=== PATIENT | male | born 1945 | race Caucasian/White ===

== ENCOUNTER 2017-05-04 05:59 | Inpatient (IN) | payer MEDICARE, BC ==
[~2017-05-04] VITALS: Ht 188 cm; Wt 102.1 kg
[~2017-05-04 05:59] MED LIST: LEVO500T10 PO
--- NOTE | 2017-05-04 07:20 | ERA ---
ER Documentation Chief Complaint Date/Time DATE: 05/04/17 TIME: 07:09 Chief Complaint Pain on the right thigh, MD had been called last night to go to ER. HPI This is a 72-year-old male with a past medical history of hypertension, hyperlipidemia, known A. fib for which he is on Xarelto and digoxin, a stroke this year for which she is now on Plavix, previous right sided total hip arthroplasty, recent angiogram of his carotids where they went through his right groin who is presenting with concerns of an infection in his right leg. Since the angiogram, the patient has complained of right groin and upper leg pain. He has been evaluated previously by his primary care physician who has been monitoring it. However, the pain has been getting progressively worse, so a CAT scan was performed yesterday of the pelvis and lower extremities that revealed a reported 10 cm x 4 cm infection in the soft tissue of the posterior upper right leg. The patient was called last night and told to come to the emergency department immediately. They decided to come this morning. The patient does not currently have any right groin pain, but he does describe a nodularity to the right groin. His pain is primarily in the right hamstring area. The patient has had intermittent fever, but he does not feel febrile now. He has not had chills. He denies chest pain or shortness of breath. He denies abdominal pain. He denies any changes to bowel movements or urination. ROS All systems reviewed and are negative except as per history of present illness. Medications Home Meds Reported Medications Atorvastatin Calcium* (Atorvastatin Calcium*) 20 Mg Tablet, 20 MG PO QHS, #30 TAB 05/04/17 Metoprolol Succinate* (Toprol XL*) 25 Mg Tab.sr.24h, 12.5 MG PO DAILY, #30 TAB 05/04/17 Rivaroxaban* (Xarelto*) 20 Mg Tablet, 20 MG PO QAM, TAB 05/04/17 Clopidogrel Bisulfate (Clopidogrel) 75 Mg Tablet, 75 MG PO DAILY, #30 TAB 05/04/17 Digoxin* (Digitek*) 125 Mcg Tablet, 0.62 MG PO QHS, TAB 05/04/17 Discontinued Reported Medications Levofloxacin* (Levofloxacin*) 500 Mg Tablet, 500 MG PO DAILY for 7 Days, TAB 08/13/15 Allergies Allergies: Coded Allergies: hydrocodone (Verified Allergy, Unknown, 05/04/17) PMhx/Soc History of Surgery: Yes (Per , 2 Right THR, L THR, L TKR, R rotator cuff repair) Anesthesia Reaction: Yes (severe vomiting ) Hx Neurological Disorder: No Hx Respiratory Disorders: No Hx Cardiac Disorders: Yes (HX ANGIOPLASTY WITH STENT) Hx Psychiatric Problems: No Hx Miscellaneous Medical Probl: No (none per pt and ) Hx Alcohol Use: Yes (OCC) Hx Substance Use: No Hx Tobacco Use: No Smoking Status: Former smoker FmHx Family History: No diabetes Physical Exam Vitals Vital Signs Date Time Temp Pulse Resp B/P Pulse Ox O2 Delivery O2 Flow Rate FiO2 05/04/17 11:23 79 18 142/73 05/04/17 06:56 Nasal Cannula 05/04/17 06:08 98.8 64 22 146/74 98 Physical Exam Const: NAD, Well Developed, Well Nourished Head: Atraumatic Eyes: Normal Conjunctiva ENT: Normal External Ears, Nose and Mouth. Neck: Full range of motion..~ No meningismus. Resp: Clear to auscultation bilaterally Cardio: Irregularly irregular rate, mild tachycardia, no murmurs Abd: Soft, non tender, non distended. Normal bowel sounds Skin: No petechiae or rashes Back: No midline or flank tenderness Ext: No cyanosis, or edema, Large area of fluctuance and induration within right hamstring area Neur: Awake and alert, normal strength, normal sensation Psych: Normal Mood and Affect Result Diagram: 05/04/17 0650 05/04/17 0650 Results 24 hrs Laboratory Tests Test 05/04/17 06:50 White Blood Count 10.810^3/ul Red Blood Count 4.7410^6/ul Hemoglobin 13.8g/dl Hematocrit 44.0% Mean Corpuscular Volume 92.8fl Mean Corpuscular Hemoglobin 29.1pg Mean Corpuscular Hemoglobin Concent 31.4g/dl Red Cell Distribution Width 13.7% Platelet Count 39864^3/UL Mean Platelet Volume 8.8fl Neutrophils % 69.3% Lymphocytes % 14.8% Monocytes % 13.8% Eosinophils % 0.9% Basophils % 0.6% Nucleated Red Blood Cells % 0.0/100WBC Neutrophils # (Manual) 7.510^3/ul Lymphocytes # 1.610^3/ul Monocytes # 1.510^3/ul Eosinophils # 0.110^3/ul Basophils # 0.110^3/ul Nucleated Red Blood Cells # 0.010^3/ul Sodium Level 140mmol/L Potassium Level 4.0mmol/L Chloride Level 103mmol/L Carbon Dioxide Level 28mmol/L Anion Gap 13 Blood Urea Nitrogen 18mg/dl Creatinine 0.99mg/dl Glucose Level 121mg/dl Calcium Level 9.8mg/dl Troponin I 0.020ng/ml Thyroid Stimulating Hormone (TSH) 1.430MIU/L Free Thyroxine 1.10ng/dl Current Medications Medications (Trade) Dose Ordered Sig/Johnathan Route PRN Reason Start Time Stop Time Status Last Admin Dose Admin Sodium Chloride (NS) 1,000 ml @ 80 mls/hr [id number] IV 05/04/17 13:30 05/05/17 01:59 Ondansetron HCl (Zofran Inj) 4 mg ER BRIDGE PRN IV NAUSEA AND/OR VOMITING 05/04/17 13:30 05/05/17 13:29 Acetaminophen (Tylenol Tab) 650 mg ER BRIDGE PRN PO MILD PAIN/FEVER 05/04/17 13:30 05/05/17 13:29 Procedures/MDM The patient's presenting with concerns of a soft tissue fluid collection in his right leg. He had a CAT scan of the pelvis and right lower extremity reportedly done yesterday that demonstrated a multilocular rim enhancing collection surrounding the right total hip arthroplasty. In the setting of recent trauma and anticoagulation, this may be suspicious for an infected hematoma and/or abscess. The CT reports will be uploaded into our system. The patient does not have any external signs of infection. The patient did fall approximately 1 month ago and did sustain a injury to the right hip. I do have high suspicion for a hematoma, given his significant anticoagulation and relatively recent trauma. I have less clinical suspicion for an infection, but this will need to be further evaluated, perhaps with a US guided sample collection in IR. The patient's vital signs indicate an irregularly irregular rhythm with mild tachycardia demonstrating atrial fibrillation with a rapid ventricular response. His heart rate ranges anywhere from the high 90s to the 110s. I do not believe that he requires Cardizem at this time, especially in the setting of a possible bleed vs. infection. We will treat the underlying pathology. LABS Blood work was obtained and reviewed. The patient has no leukocytosis or left shift. The patient is afebrile and I do not suspect a systemic infection. That does not rule out a localized infection. He does have a very mild anemia with hemoglobin of 13.8 that does not need to be emergently treated. The patient's BMP is unremarkable. The patient's thyroid function is within normal limits. His troponin is equivocal, but i have low suspicion for a cardiac etiology. The patient is tachycardic, so there may be a component of demand ischemia. He will be given IV fluids for his heart rate. A type and screen will also be sent off. EKG Read by me: Rate/Rhythm: Irregularly irregular rhythm, tachycardia at a rate of 115 bpm Intervals: Normal QRS and QTc [place]: Normal Impression: No evidence of acute ischemia or arrhythmia IMAGING The patient's chest xray was read by the radiologist as follows: FINDINGS: No focal airspace opacification, pleural effusion or pneumothorax is seen. The cardiomediastinal silhouette is mildly enlarged. Calcifications are seen within the aortic arch. The osseous structures are unremarkable. IMPRESSION: No radiographic evidence of acute cardiopulmonary disease. Mild cardiomegaly and aortic atherosclerosis. Electronically viewed and signed by .Lian Eaton MD, MD on 05/04/2017 07 :50 MDM The patient's primary physician was called to discuss the case. He felt that it would be appropriate for admission for further evaluation of this fluid collection. The patient's family had me speak to his orthopedic physician, who was his back surgeon several years ago. He was less suspicious for an infection , but he was concerned about hematoma as well. The patient will require sampling of this collection. I do not intend to start antibiotics immediately as he is otherwise well-appearing with no external signs of infection at the site. It would be prudent to obtain a sample for more targeted antibiotic treatment prior to initiating therapy blood cultures may also be sent off. The patient was otherwise stable while in the ER. Departure Diagnosis: Primary Impression: Right leg swelling Additional Impression: Traumatic hematoma of right lower leg Qualified Code: S80.11XA - Traumatic hematoma of right lower leg, initial encounter Condition: CHARLY Gambino MD May 04, 2017 07:20
[2017-05-04 07:42] LABS: BASOPHIL # 0.1 10^3/ul (0.0-0.1); BASOPHILS % 0.6 % (0.0-2.0); EOSINOPHILS # 0.1 10^3/ul (0.0-0.5); EOSINOPHILS % 0.9 % (0.0-7.0); HEMOGLOBIN 13.8 g/dl (14.0-18.0); LYMPHOCYTES # 1.6 10^3/ul (0.8-2.9); LYMPHOCYTES % 14.8 % (15.0-51.0); MEAN CORPUSCULAR HEMOGLOBIN 29.1 pg (29.0-33.0); MEAN CORPUSCULAR HGB CONC 31.4 g/dl (32.0-37.0); MEAN CORPUSCULAR VOLUME 92.8 fl (82.0-101.0); MEAN PLATELET VOLUME 8.8 fl (7.4-10.4); MONOCYTE # 1.5 10^3/ul (0.3-0.9); MONOCYTES % 13.8 % (0.0-11.0); NEUTROPHILS % 69.3 % (39.0-77.0); PLATELET COUNT 369 10^3/UL (140-415); RED BLOOD COUNT 4.74 10^6/ul (4.70-6.10); RED CELL DISTRIBUTION WIDTH 13.7 % (11.5-14.5); WHITE BLOOD COUNT 10.8 10^3/ul (4.8-10.8)
[2017-05-04] MEDS ORDERED: DIGO125T PO (07:49)
[2017-05-04] MEDS ORDERED: RIVA20TA PO (07:50)
[2017-05-04] MEDS ORDERED: CLOP75TA27 PO (07:50)
--- NOTE | 2017-05-04 07:50 | RADRPT ---
PROCEDURE: XR Chest. CLINICAL INDICATION: Chest pain TECHNIQUE: A single AP view of the chest was obtained. COMPARISON: None. FINDINGS: No focal airspace opacification, pleural effusion or pneumothorax is seen. The cardiomediastinal si lhouette is mildly enlarged. Calcifications are seen within the aortic arch. The osseous structures are unremarkable. IMPRESSION: 1. No radiographic evidence of acute cardiopulmonary disease. 2. Mild cardiomegaly and aortic atherosclerosis. RPTAT: HH .Lian Eaton MD, Date Time Electronically viewed and signed by .Lian Eaton MD, on 05/04/2017 07:50 .G/
[2017-05-04] MEDS ORDERED: ATOR20TA38 PO (07:51)
[2017-05-04] MEDS ORDERED: METO25TA7 PO (07:51)
[2017-05-04 08:10] LABS: CALCIUM 9.8 mg/dl (8.4-10.2); CREATININE 0.99 mg/dl (0.61-1.24)
[2017-05-04 08:19] LABS: TROPONIN-I 0.02 ng/ml (0.00-0.12)
[2017-05-04 08:38] LABS: THYROID STIMULATING HORMONE 1.43 MIU/L (0.465-4.680)
[2017-05-04] MEDS ORDERED: SOD CHLORIDE 0.9% 1,000 ML IV SCH (13:30)
[2017-05-04] MEDS ORDERED: ACETAMINOPHEN 325 MG TAB PO PRN (13:30)
[2017-05-04] MEDS ORDERED: ONDANSETRON 4 MG INJ IV PRN (13:30)
[2017-05-04 15:19] VITALS: TEMP 97.9
--- NOTE | 2017-05-04 15:20 | HP ---
Date/Time of Note Date/Time of Note DATE: 05/04/17 TIME: 15:15 Assessment/Plan VTE Prophylaxis VTE Prophylaxis Intervention: other Lines/Catheters IV Catheter Type (from Nrsg): Saline Lock Assessment/Plan Assessment/Plan 1. Traumatic hematoma of thigh - Per patients ortho surgeon, he was more concerned about a hematoma rather than an infection - Patient does not clinically have any signs of infection at this time, WBC nl and afebrile - No evidence of compartment syndrome as well and pulses intact - Spoke with Radiologist who said normally hematomas are not drained and they would only drain the area if concerns for infection - Will pain control for now and reassess in the am. If need for intervention will consult surgery for assistance - Blood cultures sent - CK normal 2. Afib with RVR - Holding Xarelto for now due to hematoma - Continue on Metoprolol and since had some episodes of RVR, Cardizem PRN for HR >110 3. HTN - continue home medications and will monitor and adjust as needed 4. h/o CVA - no residual deficits. Will have some expressive aphasia but no motor weakness 5. Diet - will continue normal diet at this time 6. Code Status - Full Code 7. DVT prophylaxis - SCDs >45 minutes was spent providing care at time of admission. All patients labs and imaging study report were reviewed. All questions and concerns were answered. HPI/ROS Admit Date/Time Admit Date/Time 05/04/17, 1500 Hx of Present Illness 72 yo M with PMH Afib on Xarelto, HTN, and h/o CVA with occasional expressive aphasia experiencing a mechanical fall one month ago that resulted in pain and swelling of right posterior aspect of thigh. History was obtained from patient and at bedside. Patient states the discomfort is moderate in nature, located in posterior aspect of thigh, ongoing for the past month, and has progressively worsened and was affecting his ability to ambulate. He tried ice with minimal relief and massaged the area as well but caused more pain. Patient took Advil as well. Worse with ambulation. He usually is a very active jun and able to walk on the treadmill and ride the stationary bike for long period of time but has only been able to tolerate about 5 minutes due to pain. Patient also admits to having an angiogram performed in which they went through his right groin and has been experiencing pain in that area as well. He was being monitored by his PCP who sent him for a CT scan. The CT scan revealed a 10cm x 4cm loculated fluid collection in the soft tissue of posterior right upper thigh. He was told to come to the ED out of concern for an infection. The patient has had subjective fevers with Tmax 100 per but has been afebrile and WBC normal. He denies chest pain, shortness of breath, abdominal pain, constipation, diarrhea, nausea, vomiting, or additional falls. ROS All 13 systems were reviewed and pertinent positives as per HPI. All other negative. Constitutional: No febrile, No nausea Eyes: no complaints ENT: no complaints Respiratory: no complaints Cardiovascular: No chest pain, No palpitations Gastrointestinal: no complaints Genitourinary: no complaints Musculoskeletal: other (right posterior thigh tenderness/pain) Skin: no complaints Neurologic: no complaints, other (occasional expressive aphasia), No focal-weakness, No headache Endocrine: no complaints Lymphatic: no complaints Psychological: no complaints Immunologic: no complaints PMH/Family/Social Past Medical History atrial fibrillation, HTN, CVA 07/30/2016 Past Surgical History 2 hip surgeries, knee surgery, back surgery Family History Significant Family History: cancer Social History Alcohol Use: none Smoking Status: Former smoker Drug Use: none Exam/Review of Systems Vital Signs Vitals Vital Signs Date Time Temp Pulse Resp B/P Pulse Ox O2 Delivery O2 Flow Rate FiO2 05/04/17 11:23 79 18 142/73 05/04/17 06:56 Nasal Cannula 05/04/17 06:08 98.8 98 Exam Constitutional: alert, distress, oriented, well developed Psych: no complaints Head: atraumatic, normocephalic Eyes: EOMI, nl conjunctiva, nl sclera ENMT: mucosa pink and moist Neck: non-tender, supple Respiratory: clear to auscultation, normal air movement, No crackles/rales, No diminished breath sounds Cardiovascular: irregular rhythm, nl pulses Gastrointestinal: nl liver, spleen, non-tender, soft, No distended, No rebound or guarding Extremities: tenderness (right posterior aspect of thigh, hard area appreciated , no signs of compartment syndrome, pulses intact) Neurological: No focal weakness, No numbness Skin: nl turgor Lymph: nl lymph nodes Labs Result Diagram: 05/04/17 0650 05/04/17 0650 Medications Medications Current Medications Sodium Chloride (NS) 1,000 ml @ 80 mls/hr [id number] IV ; Start 05/04/17 at 13:30; Stop 05/05/17 at 01:59 AILEEN ZEE MD May 04, 2017 15:20
[2017-05-04] MEDS ORDERED: NACL 0.9% 3 ML SYG IV SCH ×2 (15:30)
[2017-05-04] MEDS ORDERED: KETOROLAC 15 MG INJ IM PRN (15:30)
[2017-05-04 15:57] LABS: INR 1.48; PT RATIO 1.4
[2017-05-04 16:26] VITALS: Ht 188 cm; Wt 102.1 kg
[2017-05-04] MEDS ORDERED: KETOROLAC 15 MG INJ IV PRN (17:30)
[2017-05-04] MEDS ORDERED: DILTIAZEM 25 MG INJ IV PRN (18:30)
[2017-05-04] MEDS: ATORVASTATIN 20 MG TAB PO SCH (19:21)
[2017-05-04] MEDS: METOPROLOL (XL) 25 MG TAB PO SCH (19:22)
[2017-05-04 19:39] VITALS: BP 130/69; RESP 16
[2017-05-04 20:03] VITALS: PULSE 107
--- NOTE | 2017-05-04 20:14 | RADRPT ---
PROCEDURE: Ultrasound of the soft tissues of the right thigh. CLINICAL INDICATION: Palpable lesion in the soft tissues of the right thigh. TECHNIQUE: High-resolution sonography of the soft tissues of the right thigh at the site of the pa lpable lesion was performed in the axial and sagittal planes. COMPARISON: None FINDINGS: There is a heterogeneous hypoechoic mass in the posterior right thigh measuring 8.3 x 7.2 x 2.8 cm. There is no other abnormality at the site of the palpable lesion. IMPRESSION: 1. Heterogeneous hypoechoic mass in the posterior right thigh measuring 8.3 x 7.2 x 2.8 cm. 2. Correlation with MRI should be considered. RPTAT: QQ .Rodolfo Abernathy MD, MD Date Time Electronically viewed and signed by .Rodolfo Abernathy MD, on 05/04/2017 20:14 .R/
[2017-05-04] MEDS: KETOROLAC 15 MG INJ IV SCH (20:35)
[2017-05-04] MEDS ORDERED: DIGOXIN 0.125 MG TAB PO SCH (21:00)
[2017-05-04] MEDS ORDERED: ATORVASTATIN 20 MG TAB PO SCH (21:00)
[2017-05-05] VITALS (10 sets, daily range): BP systolic 120–128; BP diastolic 70–85; PULSE 73–97; RESP 16–20
[2017-05-05] MEDS: KETOROLAC 15 MG INJ IV SCH ×3 (02:26→13:00)
[2017-05-05 07:14] LABS: BASOPHILS % 0.5 % (0.0-2.0); EOSINOPHILS # 0.1 10^3/ul (0.0-0.5); EOSINOPHILS % 1.7 % (0.0-7.0); HEMATOCRIT 39.4 % (42.0-52.0); HEMOGLOBIN 12.7 g/dl (14.0-18.0); LYMPHOCYTES # 1.4 10^3/ul (0.8-2.9); LYMPHOCYTES % 17.6 % (15.0-51.0); MEAN CORPUSCULAR HEMOGLOBIN 30.1 pg (29.0-33.0); MEAN CORPUSCULAR HGB CONC 32.2 g/dl (32.0-37.0); MEAN CORPUSCULAR VOLUME 93.4 fl (82.0-101.0); MEAN PLATELET VOLUME 8.7 fl (7.4-10.4); MONOCYTE # 1.3 10^3/ul (0.3-0.9); MONOCYTES % 15.4 % (0.0-11.0); NEUTROPHILS % 64.6 % (39.0-77.0); PLATELET COUNT 342 10^3/UL (140-415); RED BLOOD COUNT 4.22 10^6/ul (4.70-6.10); RED CELL DISTRIBUTION WIDTH 13.5 % (11.5-14.5); WHITE BLOOD COUNT 8.2 10^3/ul (4.8-10.8)
[2017-05-05 07:53] LABS: ALBUMIN 3.3 g/dl (3.3-4.9); ALBUMIN/GLOBULIN RATIO 0.97; BILIRUBIN,INDIRECT 0.6 mg/dl (0-1.1); BILIRUBIN,TOTAL 0.6 mg/dl (0.2-1.3); CALCIUM 9.2 mg/dl (8.4-10.2); CREATININE 1.02 mg/dl (0.61-1.24); MAGNESIUM 2.1 mg/dl (1.7-2.5); POTASSIUM 4.7 mmol/L (3.5-5.1); TOTAL PROTEIN 6.7 g/dl (6.1-8.1)
[2017-05-05] MEDS: ATORVASTATIN 20 MG TAB PO SCH (10:34)
[2017-05-05] MEDS: METOPROLOL (XL) 25 MG TAB PO SCH (10:34)
--- NOTE | 2017-05-05 15:27 | RADRPT ---
PROCEDURE: MRI of the right lower extremity without and with IV contrast CLINICAL INDICATION: Right lower extremity pain, mass seen on ultrasound TECHNIQUE: Multiplanar multisequence images of the right lower extremity with and without IV contr ast. 10 cc of Magnevist IV contrast was used Images were interpreted at a independent PACS workstati on. COMPARISON: Ultrasound of the right lower extremity dated May 04, 2017 FINDINGS: There is extensive susceptibility artifact from orthopedic hardware at the proximal femur. Posterior and lateral to the proximal femur there is peripheral enhancing ill-defined fluid collection, overa ll measuring approximately 4.3 x 3.5 by 9.0 cm in size. There are additional sinus tract extending i nto the vastus lateralis and intermedius muscle (axial 12). The bone itself is not well assessed due to the artifact and cannot exclude associated osteomyelitis . There is chronic cortical thickening of the distal femoral shaft is likely related to a remote fra cture. Limited evaluation of the left thigh demonstrates orthopedic hardware causing also susceptibility ar tifact at the knee and near the hip as well. IMPRESSION: 1. Complex peripherally enhancing lobulated fluid collection, possibly abscess and / or hematoma, at the posterior aspect of the right thigh measuring at least 9 x 4.3 x 3.5 cm with additional small s inus tracts that appear to be extending anteriorly towards the vastus lateralis and intermedius musc les. Continued follow-up is advised to demonstrate resolution. 2. Extensive local susceptibility artifact from orthopedic hardware at the right proximal femur limi ts evaluation for osteomyelitis or fracture. Recommend correlation with plain film and / or CT for f urther evaluation. RPTAT: UU .Maikol Atkinson MD, MD Date Time Electronically viewed and signed by .Maikol Atkinson MD, MD on 05/05/2017 15:27 .K/
--- NOTE | 2017-05-05 15:49 | PN ---
Date/Time of Note Date/Time of Note DATE: 05/05/17 TIME: 15:40 Assessment/Plan VTE Prophylaxis VTE Prophylaxis Intervention: contraindicated Lines/Catheters IV Catheter Type (from Nrs): Saline Lock Assessment/Plan Assessment/Plan 1. Mass posterior aspect of right thigh - CT scan from [facility] reviewed and mentioned infection vs lipoma vs hematoma - US area revealed mass and recommendation for MRI. MRI thigh ordered this am and awaiting results to help guide plan - If infectious fluid collection will discuss with IR for drainage, or surgery if lipoma vs mass - Patient does not clinically have any signs of infection at this time, WBC nl and afebrile - No evidence of compartment syndrome as well and pulses intact - Toradol for pain relief - Blood cultures negative to date - CK normal 2. Afib with RVR - Holding Xarelto for now due to hematoma, will restart if no procedure/ hematoma - Continue on Metoprolol and since had some episodes of RVR, Cardizem PRN for HR >110 3. HTN - continue home medications and will monitor and adjust as needed 4. h/o CVA - no residual deficits. Will have some expressive aphasia but no motor weakness Subjective 24 Hr Interval Summary Free Text/Dictation Patient getting pain relief from Toradol and helping him sleep as well. He is very concerned about staying in the hospital longer than necessary and used to being more active. Denies any new complaints and no acute overnight events. Exam/Review of Systems Vital Signs Vitals Vital Signs Date Time Temp Pulse Resp B/P Pulse Ox O2 Delivery O2 Flow Rate FiO2 05/05/17 15:13 98.6 106 20 120/78 97 05/04/17 15:19 Room Air Intake and Output 05/04/17 05/04/17 05/05/17 15:00 23:00 07:00 Intake Total 200 ml 160 ml Balance 200 ml 160 ml Exam Constitutional: alert, distress, oriented, well developed Head: atraumatic, normocephalic Eyes: EOMI, nl conjunctiva, nl sclera ENMT: mucosa pink and moist Neck: non-tender, supple Respiratory: clear to auscultation, normal air movement, no crackles/rales, No diminished breath sounds Cardiovascular: irregular rhythm, nl pulses Gastrointestinal: nl liver, spleen, non-tender, soft, no distended, No rebound or guarding Extremities: tenderness of right posterior aspect of thigh, pulses intact, no visible ecchymosis, discharge, erythema, or drainage. Neurological: No focal weakness, No numbness Results Result Diagram: 05/05/17 0630 05/05/17 0630 Results 24 hrs Laboratory Tests Test 05/05/17 06:30 White Blood Count 8.2 # Red Blood Count 4.22 L Hemoglobin 12.7 L Hematocrit 39.4 L Mean Corpuscular Volume 93.4 Mean Corpuscular Hemoglobin 30.1 Mean Corpuscular Hemoglobin Concent 32.2 Red Cell Distribution Width 13.5 Platelet Count 342 Mean Platelet Volume 8.7 Neutrophils % 64.6 Lymphocytes % 17.6 Monocytes % 15.4 H Eosinophils % 1.7 Basophils % 0.5 Nucleated Red Blood Cells % 0.0 Neutrophils # (Manual) 5.3 Lymphocytes # 1.4 Monocytes # 1.3 H Eosinophils # 0.1 Basophils # 0.0 Nucleated Red Blood Cells # 0.0 Sodium Level 139 Potassium Level 4.7 Chloride Level 105 Carbon Dioxide Level 28 Anion Gap 11 Blood Urea Nitrogen 25 H Creatinine 1.02 Glucose Level 109 Calcium Level 9.2 Magnesium Level 2.1 Total Bilirubin 0.6 Direct Bilirubin 0.00 Indirect Bilirubin 0.6 Aspartate Amino Transf (AST/SGOT) 23 Alanine Aminotransferase (ALT/SGPT) 36 Alkaline Phosphatase 85 Total Protein 6.7 Albumin 3.3 Globulin 3.40 H Albumin/Globulin Ratio 0.97 Medications Medications Current Medications Digoxin (Digoxin) 0.0625 mg QHS PO Last administered on 05/04/17 20:32; Admin Dose 0.0625 MG; Start 05/04/17 at 21:00 Metoprolol Succinate (Toprol Xl) 12.5 mg DAILY PO Last administered on 10:34; Admin Dose 12.5 MG; Start 05/04/17 at 15:30 Diltiazem HCl (Cardizem Iv) 5 mg Q4H PRN IV HR >110; Start 05/04/17 at 18:30 Atorvastatin Calcium (Lipitor) 20 mg DAILY PO Last administered on 05/05/17 10: 34; Admin Dose 20 MG; Start 05/04/17 at 18:30 Ketorolac Tromethamine (Toradol) 15 mg Q6H IV Last administered on 05/05/17 02: 26; Admin Dose 15 MG; Start 05/04/17 at 19:00; Stop 05/07/17 at 18:59 AILEEN ZEE MD May 05, 2017 15:49
[2017-05-05] MEDS ORDERED: KETOROLAC 15 MG INJ IV PRN (19:00)
--- NOTE | 2017-05-05 19:05 | CONS ---
DATE OF ADMISSION: 05/04/2017 DATE OF CONSULTATION: 05/05/2017 HISTORY OF PRESENT ILLNESS: The patient is a 72-year-old male, who was admitted on April when he was sent into the emergency room by the primary care physician because of the report of the CT scan, which was obtained at [facility]. He obviously has a back sustaining blunt blow to the posterior aspect of the left thigh about a month ago. Ever since then there has been chronic pain along with some swelling and ecchymosis. He felt that there was a mild fever, however, he denies any actual chills or febrile sensations. Because of the pain over the area, his ambulation and mobility is somewhat compromised. PHYSICAL EXAMINATION: My examination revealed a 72-year-old male with tenderness over the posterior aspect of the right thigh. Deep palpation revealed that there might be a collection of fluid with ill-defined margin and there might be some interruption of the hamstring muscles, which is obvious during the selection of the right knee against resistance. Range of motion of the right hip and right knee was minimally compromised. CT scan reports a presence of multilocular collection around the right total hip arthroplasty prosthesis, which is suspicious for an infected hematoma or abscess. MRI scan in the [facility] reports the presence of lobulated fluid collection, possibly abscess or hematoma over the posterior aspect of the right thigh. He has been afebrile since his admission and he is not showing any leukocytosis. DIAGNOSTIC IMPRESSION: Hematoma with possible injury of the hamstring muscles. No evidence of infection or abscess formation. PLAN: 1. WBC scan to rule out possible presence of pyogenic process. 2. Continue observation if the WBC scan is negative. 3. If WBC scan is positive, then the possible trial of aspiration or surgical intervention have to be considered. Dictated By: In Chuyita Barahona MD /mario/trinidad /Document#: [id number]
[2017-05-05] MEDS ORDERED: NAPR500T8 PO (19:15)
--- NOTE | 2017-05-05 19:21 | PDOCDIS ---
Discharge Instructions DIAGNOSIS Discharge Diagnosis Right thigh pain with fluid collection CONDITION Patient Condition: Good HOME CARE INSTRUCTIONS: Diet Instructions: Regular ACTIVITY: Activity Restrictions: Slowly Increase Activity Rest between Activity Avoid heavy lifting FOLLOW UP/APPOINTMENTS Follow-up Plan Take Naproxen 500mg BID for pain Place heating pad on area 15-20 mins on, 1hr off Try Epsom salt baths to help relax muscles Follow up with PCP to monitor your right thigh If pain worsens or experiencing fevers, chills, nausea, or vomiting, please return to ED. You are able to resume all your medications upon discharge AILEEN ZEE MD May 05, 2017 19:21
--- NOTE | 2017-05-06 08:24 | DS ---
Date/Time of Note Date/Time of Note DATE: 05/06/17 TIME: 08:17 Discharge Summary Admission/Discharge Info Admit Date/Time May 04, 2017 at 13:33 Discharge Date/Time May 05, 2017 at 20:05 Discharge Diagnosis Right thigh pain with fluid collection Patient Condition: Good Consults Dr. Barahona, Orthopedic Surgery Hx of Present Illness 72 yo M with PMH Afib on Xarelto, HTN, and h/o CVA with occasional expressive aphasia experiencing a mechanical fall one month ago that resulted in pain and swelling of right posterior aspect of thigh. History was obtained from patient and at bedside. Patient states the discomfort is moderate in nature, located in posterior aspect of thigh, ongoing for the past month, and has progressively worsened and was affecting his ability to ambulate. He tried ice with minimal relief and massaged the area as well but caused more pain. Patient took Advil as well. Worse with ambulation. He usually is a very active jun and able to walk on the treadmill and ride the stationary bike for long period of time but has only been able to tolerate about 5 minutes due to pain. Patient also admits to having an angiogram performed in which they went through his right groin and has been experiencing pain in that area as well. He was being monitored by his PCP who sent him for a CT scan. The CT scan revealed a 10cm x 4cm loculated fluid collection in the soft tissue of posterior right upper thigh. He was told to come to the ED out of concern for an infection. The patient has had subjective fevers with Tmax 100 per but has been afebrile and WBC normal. He denies chest pain, shortness of breath, abdominal pain, constipation, diarrhea, nausea, vomiting, or additional falls. Hospital Course Patient was admitted and started on Toradol for pain control. Radiology was consulted and said they do not drain hematomas. The CT scan mentioned hematoma vs infection vs lipoma but patient was afebrile with normal WBC. There was no erythema, ecchymosis, drainage, or discharge from right thigh. US was performed which showed a 1. Heterogeneous hypoechoic mass in the posterior right thigh measuring 8.3 x 7.2 x 2.8 cm. 2. Correlation with MRI should be considered. MRI was performed and showed 1. Complex peripherally enhancing lobulated fluid collection, possibly abscess and / or hematoma, at the posterior aspect of the right thigh measuring at least 9 x 4.3 x 3.5 cm with additional small sinus tracts that appear to be extending anteriorly towards the vastus lateralis and intermedius muscles. Continued follow-up is advised to demonstrate resolution. 2. Extensive local susceptibility artifact from orthopedic hardware at the right proximal femur limits evaluation for osteomyelitis or fracture. Recommend correlation with plain film and / or CT for further evaluation. Dr. Barahona, Orthopedics, was consulted by ED physician and after discussion believed it was a hematoma as well but offered patient WBC scan to r/o infectious etiology. He believed the patients pain stemmed more from torn muscle that occurred during his fall. Patient states the Toradol was improving his pain and ESR, CRP was slightly elevated as well which was more suspicious of muscle injury than infectious cause. Patient and decided they would like to be discharge with pain control and follow up in [place] with Ortho who they felt more comfortable with. Patient states he would see his PCP and contact their family friend who is ID physician for further advice. Patient was instructed to place heating pad on area and take Epsom salt baths for muscle relief. Patient and 's questions were all answered and concerns were addressed. Patient was discharged is stable condition. Home Meds Active Scripts Naproxen* (Naproxen EC*) 500 Mg Tablet., 500 MG PO BID Y for PAIN for 30 Days , #60 TAB Prov:AILEEN ZEE MD 05/05/17 Reported Medications Atorvastatin Calcium* (Atorvastatin Calcium*) 20 Mg Tablet, 20 MG PO QHS, #30 TAB 05/04/17 Metoprolol Succinate* (Toprol XL*) 25 Mg Tab.sr.24h, 12.5 MG PO DAILY, #30 TAB 05/04/17 Rivaroxaban* (Xarelto*) 20 Mg Tablet, 20 MG PO QAM, TAB 05/04/17 Clopidogrel Bisulfate (Clopidogrel) 75 Mg Tablet, 75 MG PO DAILY, #30 TAB 05/04/17 Digoxin* (Digitek*) 125 Mcg Tablet, 0.62 MG PO QHS, TAB 05/04/17 Discontinued Reported Medications Levofloxacin* (Levofloxacin*) 500 Mg Tablet, 500 MG PO DAILY for 7 Days, TAB 08/13/15 Follow-up Plan Patient was instructed to take Naproxen 500mg BID as needed for pain. Return to ED if experiencing fevers >101, nausea, vomiting, worsening pain, erythema, warmth at site of discomfort. Follow up with PCP as soon as possible. Primary Care Provider Sidney Mccarthy MD Time spent on discharge: > 30 minutes AILEEN ZEE MD May 06, 2017 08:24
== END 2017-05-05 20:05 | disposition home or self-care (01) | DRG 605 ==
LOC: E/R 05:59 → TEL 13:33
PROVIDERS: ADMIT Internal Medicine; ATTEND Internal Medicine
DX: S80.11XA Contusion of right lower leg, initial encounter (principal); I10 Essential (primary) hypertension; Z79.02 Long term (current) use of antithrombotics/antiplatelets; E78.5 Hyperlipidemia, unspecified; Z96.643 Presence of artificial hip joint, bilateral; Z96.652 Presence of left artificial knee joint; Z86.73 Personal history of transient ischemic attack (TIA), and cerebral infarction without residual deficits
CPT/HCPCS: 36415; 71010; 73720; 80048; 80053; 82550; 83735; 84439; 84443; 84484; 85025; 85610; 85651; 86140; 86850; 86900; 86901; 87040; 93005; J1885; J7030

== ENCOUNTER 2017-05-16 06:39 | Day surgery (SDC) | payer MEDICARE, BC ==
[~2017-05-16] VITALS: Ht 188 cm; Wt 103.0 kg
[~2017-05-16 06:39] MED LIST changes: +ATOR20TA38 PO; +CLOP75TA27 PO; +DIGO125T PO; -LEVO500T10 PO; +METO-335 PO; +NAPR500T8 PO; +RIVA20TA PO
[2017-05-16 07:59] VITALS: Ht 188 cm; Wt 103.0 kg
[2017-05-16 08:01] VITALS: BP 146/90; PULSE 111; RESP 20
[2017-05-16] MEDS ORDERED: LIDOCAINE 1% (MDV) 20 ML INJ ONE (09:06)
[2017-05-16 10:00] VITALS: BP 142/87; PULSE 67; RESP 16
--- NOTE | 2017-05-16 14:41 | RADRPT ---
PROCEDURE: Ultrasound guided right thigh fluid collection aspiration. CLINICAL INDICATION: Right thigh fluid collection kanika TECHNIQUE: Prior to the procedure, informed consent was obtained. Risks including bleeding and in fection were explained to the patient. The patient understood was willing to proceed. A procedural pause was performed. The patient's name, date of , and procedure to be performed were [email or web address]. Using local anesthetic, sterile technique and ultrasound guidance, a 16 G needle was advanced into t he fluid collection in the right thigh. Despite the large size of the fluid collection, only 1 ml of serosanguineous fluid could be aspirated. The patient tolerated the procedure well. COMPARISON: MRI of the right femur dated 05/05/2017. FINDINGS: Images demonstrate the needle within the large fluid collection in the right thigh. IMPRESSION: 1. Despite the large size of the fluid collection in the right thigh, only 1 ml of serosanguineous fluid could be aspirated. This was sent for laboratory analysis para RPTAT: QQ .Rodolfo Abernathy MD, MD Date Time Electronically viewed and signed by .Rodolfo Abernathy MD, on 05/16/2017 14:41 .R/
== END 2017-05-16 10:26 | disposition home or self-care (01) ==
LOC: SDS 06:39 → EDSTATUS 09:00 → SDS 10:26
PROVIDERS: ATTEND Internal Medicine Infectious Disease
DX: L02.415 Cutaneous abscess of right lower limb (principal)
CPT/HCPCS: 87070; 87075

== ENCOUNTER 2017-08-06 10:16 | Observation (INO) | payer MEDICARE, BC ==
[~2017-08-06] VITALS: Ht 182.9 cm; Wt 104.4 kg
[~2017-08-06 10:16] MED LIST changes: -RIVA20TA PO; +RIVA20TA5 PO
--- NOTE | 2017-08-06 13:34 | ERD ---
ER Documentation Chief Complaint Chief Complaint right leg pain/swelling possible abscess x 5 months HPI 72-year-old man presents with 5 months posterior right thigh mass associated with mild pain and difficulty ambulating. He was sent for admission and guided aspiration. Denies fevers or chills, no chest pain or shortness of breath, no paresis or paresthesias, no recent trauma, no no redness or swelling ROS All systems reviewed and are negative except as per history of present illness. Medications Home Meds Active Scripts Naproxen* (Naproxen EC*) 500 Mg Tablet.dr, 500 MG PO BID Y for PAIN for 30 Days , #60 TAB Prov:AILEEN ZEE MD 05/05/17 Reported Medications Atorvastatin Calcium* (Atorvastatin Calcium*) 20 Mg Tablet, 20 MG PO QHS, #30 TAB 05/04/17 Metoprolol Succinate* (Toprol XL*) 25 Mg Tab.sr.24h, 12.5 MG PO DAILY, #30 TAB 05/04/17 Rivaroxaban* (Xarelto*) 20 Mg Tablet, 20 MG PO QAM, TAB 05/04/17 Clopidogrel Bisulfate (Clopidogrel) 75 Mg Tablet, 75 MG PO DAILY, #30 TAB 05/04/17 Digoxin* (Digitek*) 125 Mcg Tablet, 0.62 MG PO QHS, TAB 05/04/17 Allergies Allergies: Coded Allergies: hydrocodone (Verified Allergy, Unknown, 05/04/17) acetaminophen (Unverified Adverse Reaction, Unknown, DROPS BLOOD PRESSURE , 05/16/17) oxycodone (Unverified Adverse Reaction, Unknown, DROPS BLOOD PRESSURE, ) PMhx/Soc Atrial fibrillation, HTN, and h/o CVA with occasional expressive aphasia, right hip fracture and surgery, left knee TKA History of Surgery: Yes (HUMBERTO HIP SURGERY,LT KNEE USRGERY, BACK SURGERY,HERNIA REPAIR RT INGUINAL) Anesthesia Reaction: Yes (N/V) Hx Neurological Disorder: No Hx Respiratory Disorders: No Hx Cardiac Disorders: Yes (AFIB ,HTN) Hx Psychiatric Problems: No Hx Miscellaneous Medical Probl: No Hx Alcohol Use: Yes (OCCASIONAL BEER) Hx Substance Use: No Hx Tobacco Use: No FmHx Family History: No diabetes Physical Exam Vitals Vital Signs Date Time Temp Pulse Resp B/P Pulse Ox O2 Delivery O2 Flow Rate FiO2 08/06/17 10:20 98.2 70 18 128/64 98 Physical Exam GENERAL: Well-developed, well-nourished, well-hydrated, in no apparent distress , looks nontoxic in appearance HEENT: Moist mucous membranes, pink conjunctiva, no cervical spine tenderness or step-off deformities, no goiter, no jaundice or icterus, extraocular movements intact without pain. No submandibular induration, and no pharyngeal erythema NEURO: Alert and oriented 3, cranial nerves II through XII intact bilaterally, pupils equal round reactive to light, no focal deficits or facial asymmetry, sensation intact distally Strength 5/5 in upper and lower extremities bilaterally CARDIAC: Regular rate and rhythm, no murmurs rubs or gallops LUNGS: Clear bilaterally no wheezing crackles or stridor ABDOMEN: Soft nontender, no guarding, no rigidity, no rebound, no psoas sign no obturator sign. Normoactive bowel sounds SKIN: Warm and dry to touch, soft tissue mass of the posterior right thigh without induration or tenderness, soft, no overlying skin erythema or induration. EXTREMITIES: No clubbing cyanosis or edema, calves are bilaterally symmetrical, no Homans sign, no popliteal cord sign. Distal pulses equal and bilateral PSYCH: Normal affect without agitation or irritability Result Diagram: 08/06/17 1522 08/06/17 1522 Results 24 hrs Current Medications Medications (Trade) Dose Ordered Sig/Johnathan Route PRN Reason Start Time Stop Time Status Last Admin Dose Admin Sodium Chloride (NS) 1,000 ml @ 1,000 mls/hr Q1H STAT IV 08/06/17 13:38 08/06/17 14:37 DC 08/06/17 13:53 Ketorolac Tromethamine (Toradol) 15 mg ONCE STAT IV 08/06/17 13:38 08/06/17 13:42 DC 08/06/17 13:53 IV Flush 10 ml 10 ml STK-MED ONCE .ROUTE 08/06/17 14:10 08/06/17 14:11 DC 08/06/17 14:31 Sodium Chloride (NS) 100 ml @ ud STK-MED ONCE .ROUTE 08/06/17 14:10 08/06/17 14:11 DC 08/06/17 14:31 Iohexol (Omnipaque 300mg/ ml) 150 ml STK-MED ONCE .ROUTE 08/06/17 14:10 08/06/17 14:11 DC 08/06/17 14:32 Procedures/MDM IV line was established patient was placed on auto garage attendant rhythm strip revealed a sinus rhythm at about 80 bpm with upright P and T waves. Patient was afebrile EKG performed, read by me revealed an atrial fibrillation rate controlled at 89 bpm, normal axis, narrow QRS complex, no concerning ST elevations or depressions noted. CT scan of the right lower extremity with IV contrast was performed, IMPRESSION: 1. Persistent fluid collection within the posterior lateral mid thigh posterior to the vastus lateralis muscle and hamstring musculature measuring up to 8.1 x 2.7 x 9.0 cm which may correspond with a chronic hematoma or seroma, less likely abscess. 2. Intact right total hip prosthesis without an acute fracture. 3. 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 I administered 1 L normal saline intravenously and Toradol 15 mg IV 1 CBC and electrolytes were unremarkable, liver function tests were normal Departure Diagnosis: Primary Impression: Mass of thigh Laterality: right Qualified Code: R22.41 - Mass of right thigh Condition: RAUL Cowan MD Aug 06, 2017 13:34 (Colace) 100 mg Q12H PRN PO CONSTIPATION 08/06/17 14:30 Magnesium Hydroxide (Milk Of Mag) 30 ml DAILY PRN PO CONSTIPATION 08/06/17 14:30 Bisacodyl (Dulcolax Supp) 10 mg DAILY PRN DE CONSTIPATION 08/06/17 14:30 Pantoprazole (Protonix Iv) 40 mg DAILY@06 IV 08/07/17 06:00 Ketorolac Tromethamine (Toradol) 30 mg Q6 PRN IV pain 08/06/17 14:30 08/09/17 14:29 Atorvastatin Calcium (Lipitor) 20 mg QHS PO 08/06/17 21:00 Clopidogrel Bisulfate (plaVIX) 75 mg DAILY PO 08/07/17 09:00 Digoxin (Digoxin) 0.0625 mg QHS PO 08/06/17 21:00 Metoprolol Succinate (Toprol Xl) 12.5 mg DAILY PO 08/07/17 09:00 Rivaroxaban (Xarelto) 20 mg 18 PO 08/06/17 18:00 Procedures/MDM IV line was established patient was placed on auto garage attendant rhythm strip revealed a sinus rhythm at about 80 bpm with upright P and T waves. Patient was afebrile EKG performed, read by me revealed an atrial fibrillation rate controlled at 89 bpm, normal axis, narrow QRS complex, no concerning ST elevations or depressions noted. CT scan of the right lower extremity with IV contrast was performed, IMPRESSION: 1. Persistent fluid collection within the posterior lateral mid thigh posterior to the vastus lateralis muscle and hamstring musculature measuring up to 8.1 x 2.7 x 9.0 cm which may correspond with a chronic hematoma or seroma, less likely abscess. 2. Intact right total hip prosthesis without an acute fracture. 3. 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 I administered 1 L normal saline intravenously and Toradol 15 mg IV 1 Departure Diagnosis: Primary Impression: Mass of thigh Laterality: right Qualified Code: R22.41 - Mass of right thigh Condition: RAUL Cowan MD Aug 06, 2017 13:34
[2017-08-06] MEDS ORDERED: KETOROLAC 15 MG INJ IV STA (13:38)
[2017-08-06] MEDS ORDERED: SOD CHLORIDE 0.9% 1,000 ML IV STA (13:38)
[2017-08-06] MEDS ORDERED: IOHEXOL 300MG/ML 150 ML BTL ONE (14:10)
[2017-08-06] MEDS ORDERED: SOD CHLORIDE 0.9% 100 ML ONE (14:10)
[2017-08-06] MEDS ORDERED: MAGNESIUM HYDROXIDE 30ML CUP PO PRN (14:30)
[2017-08-06] MEDS ORDERED: NACL 0.9% 3 ML SYG IV SCH (14:30)
[2017-08-06] MEDS ORDERED: ONDANSETRON 4 MG INJ IV PRN (14:30)
[2017-08-06] MEDS ORDERED: DOCUSATE SODIUM 100 MG CAP PO PRN (14:30)
[2017-08-06] MEDS ORDERED: BISACODYL 10 MG SUPP PR PRN (14:30)
--- NOTE | 2017-08-06 14:57 | HP ---
Date/Time of Note Date/Time of Note DATE: 08/06/17 TIME: 14:52 Assessment/Plan VTE Prophylaxis VTE Prophylaxis Intervention: SCD's Assessment/Plan Chief Complaint/Hosp Course Assessment and plan 1. Mass in posterior aspect of right thigh. CT scan of patient's right thigh is pending. Will plan for IR drainage of right thigh ending clinical course. Will get infectious disease physician to follow for possible antibiotic regimen. Continue with analgesics for now. 2. Atrial fibrillation. Will continue patient on Xarelto. Continue on digoxin. 3. History of CVA. Continue patient's antiplatelet therapy as well as statin medication. 4. History of possible dyslipidemia. Follow-up on fasting lipid panel. resume statin medicaiton 5. Essential hypertension. Continue antihypertensives and adjust needed. Admission process time is greater than 40 minutes Discussed plan of care with Dr. Ann Problems: HPI/ROS Admit Date/Time Admit Date/Time Hx of Present Illness This is a 72-year-old male with history of atrial fibrillation with rapid ventricular response status post ablation, CVA with no residual deficits, hypertension, history of mass on posterior aspect of right thigh who came back to [facility] again due to reports of right leg pain secondary to again mass on posterior portion of right thigh. Patient of note was admitted to the hospital in April 2017 for similar issue. At that time he had MRI imaging of right lower extremity showing complex peripherally enhancing lobulated fluid collection measuring 9 x 4.3 x 3.5 cm. She was seen by orthopedic surgeon at that time and did have attempted needle aspiration with only 1 mm of serosanguineous fluid removed. Patient was discharged for outpatient follow-up with orthopedic surgeon and infectious disease physician. Despite optimal medical management he still persisted with increased pain on right leg and intermittent swelling of posterior aspect of right thigh. He again is admitted to [facility] due to the aformentiond issues. He denies any fever with this. No elevation in white count seen. He reports no other associated symptoms. We will evaluate him for the aformentiond issues. ROS 12 point review of systems obtained and entirely negative except as mentioned in history of present illness PMH/Family/Social Past Medical History Medical/surgical history 1. Atrial fibrillation with rapid ventricular response status post ablation 2. History of CVA with no residual deficit 3. Hypertension 4. Bilateral hip replacement 5. Hypertension Family History Significant Family History: no pertinent family hx Social History Alcohol Use: none Smoking Status: Never smoker Drug Use: none Exam/Review of Systems Vital Signs Vitals Vital Signs Date Time Temp Pulse Resp B/P Pulse Ox O2 Delivery O2 Flow Rate FiO2 08/06/17 10:20 98.2 70 18 128/64 98 Exam Constitutional: alert, oriented Head: normocephalic Eyes: nl conjunctiva Neck: non-tender, supple Respiratory: clear to auscultation, normal air movement Cardiovascular: other (Regular diet rate with history of atrial fibrillation) Gastrointestinal: non-tender, soft Musculoskeletal: swelling (Posterior aspect of right thigh) Neurological: ANIMAL RIDE MANAGER II-XII intact, nl mental status, nl speech Medications Medications Current Medications Ondansetron HCl (Zofran Inj) 4 mg Q6H PRN IV NAUSEA AND/OR VOMITING; Start 07/13 at 14:30; Status UNV Docusate Sodium (Colace) 100 mg Q12H PRN PO CONSTIPATION; Start 08/06/17 at 14 :30; Status UNV Magnesium Hydroxide (Milk Of Mag) 30 ml DAILY PRN PO CONSTIPATION; Start 08/06 at 14:30; Status UNV Bisacodyl (Dulcolax Supp) 10 mg DAILY PRN PA CONSTIPATION; Start 08/06/17 at 14:30; Status UNV Pantoprazole (Protonix Iv) 40 mg DAILY@06 IV ; Start 08/07/17 at 06:00; Status UNV Ketorolac Tromethamine (Toradol) 30 mg Q6 PRN IV pain; Start 08/06/17 at 14:30 ; Stop 08/09/17 at 14:29; Status UNV Atorvastatin Calcium (Lipitor) 20 mg QHS PO ; Start 08/06/17 at 21:00; Status UNV Clopidogrel Bisulfate (plaVIX) 75 mg DAILY PO ; Start 08/07/17 at 09:00; Status UNV Digoxin (Digoxin) 0.62 mg QHS PO ; Start 08/06/17 at 21:00; Status UNV Metoprolol Succinate (Toprol Xl) 12.5 mg DAILY PO ; Start 08/07/17 at 09:00; Status UNV Rivaroxaban (Xarelto) 20 mg QAM PO ; Start 08/07/17 at 09:00; Status UNV MARIS LYONS Aug 06, 2017 14:57
--- NOTE | 2017-08-06 15:16 | RADRPT ---
PROCEDURE: CT right femur with contrast. CLINICAL INDICATION: Posterior thigh pain. Evaluate for abscess. TECHNIQUE: CT scan of the right thigh/femur was performed on a multi -slice scanner. About 100 ml of Omnipaque-300 IV contrast was administered. Coronal and sagittal reformatted images were obtai analilia from the axial source images. The total exam DLP equals 880 mGy-cm. The CDTI volume was 12 mGy. Images were reviewed on a high-resolution PACS workstation. DICOM images are available. One or more of the following dose reduction techniques were used: Automated exposure control Adjustment of the mA and/or kV according to patient size. Use of iterative reconstruction technique. COMPARISON: 05/05/2017 MRI and ultrasound from 05/04/2017 FINDINGS: As seen on the prior studies, there is a loculated fluid collection within the posterior lateral mid thigh with a small amount of rim enhancement measuring up to 8.1 cm transverse by 2.7 cm AP by 9.0 cm cranial-caudal. It is posterior to the vastus lateralis muscle and hamstring musculature. It is i ncreased in size in transverse dimensions compared to the prior study. Postsurgical changes of a right total hip prosthesis are visualized. The prosthesis is intact withou t an acute fracture or periprosthetic fracture. Cerclage wires are also noted surrounding the proxim al femur. There is a small focus of cortical thickening within the medial distal femoral shaft which may be from prior trauma. No significant bony destructive changes are present. There is severe joint space narrowing of the medial compartment and moderate to severe joint space n arrowing of the lateral compartment of the knee with prominent osseous spurring. There is also moder ate to severe joint space narrowing of the patellofemoral compartment with prominent osseous spurrin g. Moderate atherosclerotic calcifications are noted throughout. RPTAT: ZZ IMPRESSION: 1. Persistent fluid collection within the posterior lateral mid thigh posterior to the vastus latera lis muscle and hamstring musculature measuring up to 8.1 x 2.7 x 9.0 cm which may correspond with a chronic hematoma or seroma, less likely abscess. 2. Intact right total hip prosthesis without an acute fracture. 3. 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 .Cierra Sarmiento MD, MD Date Time Electronically viewed and signed by .Cierra Sarmiento MD, MD on 08/06/2017 15:15 .T/
[2017-08-06 15:30] LABS: BASOPHILS % 0.3 % (0.0-2.0); EOSINOPHILS # 0.1 10^3/ul (0.0-0.5); HEMATOCRIT 37.8 % (42.0-52.0); HEMOGLOBIN 12.2 g/dl (14.0-18.0); LYMPHOCYTES # 1.4 10^3/ul (0.8-2.9); MEAN CORPUSCULAR HEMOGLOBIN 29.4 pg (29.0-33.0); MEAN CORPUSCULAR HGB CONC 32.3 g/dl (32.0-37.0); MEAN CORPUSCULAR VOLUME 91.1 fl (82.0-101.0); MEAN PLATELET VOLUME 8.5 fl (7.4-10.4); MONOCYTE # 1.4 10^3/ul (0.3-0.9); MONOCYTES % 14.1 % (0.0-11.0); NEUTROPHIL # 6.9 10^3/ul (1.6-7.5); NEUTROPHILS % 70.2 % (39.0-77.0); PLATELET COUNT 238 10^3/UL (140-415); RED BLOOD COUNT 4.15 10^6/ul (4.70-6.10); RED CELL DISTRIBUTION WIDTH 13.8 % (11.5-14.5); WHITE BLOOD COUNT 9.8 10^3/ul (4.8-10.8)
[2017-08-06 15:58] LABS: ALBUMIN 3.1 g/dl (3.3-4.9); ALBUMIN/GLOBULIN RATIO 0.93; BILIRUBIN,INDIRECT 0.3 mg/dl (0-1.1); BILIRUBIN,TOTAL 0.3 mg/dl (0.2-1.3); CALCIUM 8.7 mg/dl (8.4-10.2); CREATININE 1.01 mg/dl (0.61-1.24); TOTAL PROTEIN 6.4 g/dl (6.1-8.1)
[2017-08-06 16:16] VITALS: TEMP 98.2
[2017-08-06 17:00] VITALS: Ht 182.9 cm; Wt 104.4 kg
[2017-08-06] MEDS ORDERED: RIVAROXABAN 20 MG TABLET PO SCH (18:00)
[2017-08-06] MEDS: KETOROLAC 30 MG INJ IV PRN (20:07)
[2017-08-06 20:33] VITALS: BP 122/76; RESP 20
[2017-08-06] MEDS: ATORVASTATIN 20 MG TAB PO SCH (21:21)
[2017-08-06] MEDS: DIGOXIN 0.125 MG TAB PO SCH (21:22)
[2017-08-07 02:17] VITALS: BP 112/60; RESP 18
[2017-08-07 05:05] LABS: BASOPHIL # 0.1 10^3/ul (0.0-0.1); BASOPHILS % 0.6 % (0.0-2.0); EOSINOPHILS # 0.1 10^3/ul (0.0-0.5); EOSINOPHILS % 1.7 % (0.0-7.0); HEMATOCRIT 38.4 % (42.0-52.0); HEMOGLOBIN 12.2 g/dl (14.0-18.0); LYMPHOCYTES # 1.6 10^3/ul (0.8-2.9); MEAN CORPUSCULAR HEMOGLOBIN 29.2 pg (29.0-33.0); MEAN CORPUSCULAR HGB CONC 31.8 g/dl (32.0-37.0); MEAN CORPUSCULAR VOLUME 91.9 fl (82.0-101.0); MEAN PLATELET VOLUME 9.4 fl (7.4-10.4); MONOCYTE # 1.2 10^3/ul (0.3-0.9); MONOCYTES % 15.1 % (0.0-11.0); NEUTROPHILS % 62.4 % (39.0-77.0); PLATELET COUNT 247 10^3/UL (140-415); RED BLOOD COUNT 4.18 10^6/ul (4.70-6.10); RED CELL DISTRIBUTION WIDTH 13.8 % (11.5-14.5)
[2017-08-07] MEDS: PANTOPRAZOLE 40 MG INJ IV SCH (05:13)
[2017-08-07 06:22] LABS: ALBUMIN 3.3 g/dl (3.3-4.9); ALBUMIN/GLOBULIN RATIO 0.91; BILIRUBIN,INDIRECT 0.5 mg/dl (0-1.1); BILIRUBIN,TOTAL 0.5 mg/dl (0.2-1.3); CALCIUM 9.5 mg/dl (8.4-10.2); CREATININE 1.19 mg/dl (0.61-1.24); PHOSPHORUS 4.9 mg/dl (2.5-4.9); POTASSIUM 4.8 mmol/L (3.5-5.1); TOTAL PROTEIN 6.9 g/dl (6.1-8.1)
[2017-08-07 06:35] LABS: T3 UPTAKE 42.7 % (23.5-40.5)
[2017-08-07 06:49] LABS: THYROID STIMULATING HORMONE 0.527 MIU/L (0.465-4.680)
--- NOTE | 2017-08-07 07:24 | CONS ---
DATE OF ADMISSION: 08/06/2017 DATE OF CONSULTATION: 08/06/2017 TYPE OF CONSULTATION: Infectious disease. REASON FOR CONSULTATION: Antibiotic management. HISTORY OF PRESENT ILLNESS: Sam Smith is a 72-year-old [place] male well known to me as a patient of mine who comes in now with numerous problems. His problems include: 1. Status post angioplasty in October and January of 1994. 2. Status post total knee replacement in 2004. 3. Status post hernia repair secondary to sports in February of 2005. 4. ALLERGIES TO VICODIN, NORCO AND PERCOCET. 5. 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 6. Status post arthroscopy 20 years ago, left and right hips. 7. Gout. 8. Right hip infection which was redone x2. He had his left knee operated on with a total knee rep lacement in 2004. He had his left hip replaced in . 9. Status post lumbar laminectomy 1 year ago. 10. Right shoulder surgery in November 2014. 11. 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 12. Atrial fibrillation. 13. Carotid artery plaque formation for which Dr. Roper evaluated him with a right femoral angiogr am about 3 or 4 months ago. The patient now presents with atrial fibrillation and rapid ventricular response, but also he presen ts with significant pain in the right hip and leg area secondary to a mass on the posterior portion of the right thigh. He was seen in April of 2017 for similar issue. At that time, he had an MR I which showed complex peripherally-enhancing lobulated fluid collection measuring 9 x 4.3 x 3.5 cm. There was an attempted needle aspiration with only 1 of serosanguineous fluid removed, and t he patient was discharged from the hospital. The patient has had increasing pain and swelling of th e right thigh and hip area and, therefore, was admitted to the hospital. He has had a CT scan of th e lower extremity. There is a loculated fluid collection within the posterolateral mid thigh with a small amount of rim enhancement measuring up to 8.1 cm transverse x 2.7 AP x 9 cm craniocaudad. It is posterior to the vastus lateralis muscle and hamstring musculature. It is increased in size in transverse dimension compared to the prior study. Postsurgical changes of right total hip prosthesi s are visualized. The prosthesis is intact without any fractures or periprosthetic fracture. Cercl age wires were also noted surrounding the proximal femur. There is severe joint space narrowing of the medial compartment and moderate to severe joint space narrowing of the lateral compartment of th e knee with prominent osseous spurring. PAST MEDICAL HISTORY: Operations as outlined. FAMILY HISTORY: Noncontributory. SOCIAL HISTORY: He does not smoke. He drinks occasionally. He does not abuse drugs. ALLERGIES: NONE TO PENICILLIN, SULFA OR FOODS. MEDICATIONS: Per chart. REVIEW OF SYSTEMS: As per HPI. PHYSICAL EXAMINATION: GENERAL: The patient is a well-developed, well-nourished male who is alert, responsive, in no acute distress. VITAL SIGNS: Stable. He is afebrile. SKIN: Without generalized rash. HEENT: Within normal limits. NECK: Supple. LYMPH NODES: None palpable. LUNGS: Clear to P and A. HEART: Irregularly irregular rhythm. ABDOMEN: Soft, nontender, without organosplenomegaly or masses. EXTREMITIES: Without cyanosis, clubbing or edema. RECTAL AND GENITAL: Deferred. NEUROLOGIC: No focal neurological abnormalities. IMPRESSION AND PLAN: The patient still has a fluid collection in the leg, the right thigh. We ____ _ to evaluate him and to aspirate the knee to make sure that there is no abscess, although all of hi s labs are quite normal and he is afebrile. I will dictate my findings to the hospitalist. Dictated By: JANETH RIVERA MD, JD/MARILYN Conf#: [id number] DID#: [id number] CC: TRE DEL REAL MD;*EndCC*
[2017-08-07 08:10] VITALS: BP 117/75; RESP 20
[2017-08-07] MEDS: METOPROLOL (XL) 25 MG TAB PO SCH (08:34)
[2017-08-07] MEDS ORDERED: CLOPIDOGREL 75 MG TAB PO SCH (09:00)
[2017-08-07 12:20] LABS: INR 1.42; PARTIAL THROMBOPLASTIN TIME 37.8 Sec (25.0-35.0); PROTIME 17.6 Sec (11.9-14.9); PT RATIO 1.4
[2017-08-07] MEDS: KETOROLAC 30 MG INJ IV PRN (13:12)
--- NOTE | 2017-08-07 14:13 | PN ---
Date/Time of Note Date/Time of Note DATE: 08/07/17 TIME: 14:12 Assessment/Plan VTE Prophylaxis VTE Prophylaxis Intervention: contraindicated Lines/Catheters IV [facility] Type (from [facility] Saline Lock Urinary Cath still in place: No Assessment/Plan Chief Complaint/Hosp Course 1. Fluid collection within the posterior lateral mid thigh posterior to the vastus lateralis muscle and hamstring musculature. -Possible hematoma versus seroma. Less likely abscess. -Orthopedic surgery has been consulted. -IR guided drainage has also been ordered. -ID following. Not on any antibiotics. -Hold factor Xa inhibitors. 2. Atrial fibrillation. -Continue digoxin. -Continue beta-blockers. 3. CAD. -S/P PCI in the past. -Was on Plavix. 4. Essential hypertension. -Continue antihypertensives. 5. Dyslipidemia. -Continue statins. 6. Anemia. -Normocytic and normochromic. -Monitor H&H closely. 7. Fluids, electrolytes, and nutrition. -Low-cholesterol diet. 8. DVT prophylaxis. -Contraindicated. 9. Plan. -Await orthopedic surgical evaluation. -Continue pain control. Case discussed with Dr. Steel. Plan of care was explained to the patient and the family in length. Problems: Subjective 24 Hr Interval Summary Free Text/Dictation Complains of pain in the right thigh. Exam/Review of Systems Vital Signs Vitals Vital Signs Date Time Temp Pulse Resp B/P Pulse Ox O2 Delivery O2 Flow Rate FiO2 08/07/17 08:10 98.7 20 117/75 98 08/07/17 02:17 61 08/06/17 16:16 Room Air Intake and Output 08/06/17 08/06/17 08/07/17 14:59 22:59 06:59 Intake Total 400 ml 500 ml Balance 400 ml 500 ml Exam General: Adequately build 72 year-old male lying in bed in no apparent distress. HEENT: Normocephalic, atraumatic. Eyes: Anicteric sclerae, conjunctivae clear. ENT: Nasal septum midline, oral mucosa moist. Neck supple, no JVD noticed. Respiratory: Bilaterally clear breath sounds. No use of accessory muscles of respiration. No adventitious breath sounds. Cardiovascular: S1, S2 heard. Irregularly irregular rhythm. Abdomen: Soft, nontender, and nondistended. Bowel sounds positive in all 4 quadrants. Genitourinary: Deferred. Extremities: No cyanosis, no clubbing, no edema. Peripheral pulses palpable. Right posterior thigh palpable soft area that is tender to touch. Neurologic: Cranial nerves II through XII grossly intact. The patient is awake, alert, and oriented. Skin: Normal skin turgor. No skin rashes. Results Result Diagram: 08/07/17 0423 08/07/17 0423 Results 24 hrs Laboratory Tests Test 08/06/17 15:22 08/07/17 04:23 08/07/17 11:50 White Blood Count 9.8 8.0 Red Blood Count 4.15 L 4.18 L Hemoglobin 12.2 L 12.2 L Hematocrit 37.8 L 38.4 L Mean Corpuscular Volume 91.1 91.9 Mean Corpuscular Hemoglobin 29.4 29.2 Mean Corpuscular Hemoglobin Concent 32.3 31.8 L Red Cell Distribution Width 13.8 13.8 Platelet Count 238 # 247 Mean Platelet Volume 8.5 9.4 Neutrophils % 70.2 62.4 Lymphocytes % 14.0 L 20.0 Monocytes % 14.1 H 15.1 H Eosinophils % 1.0 1.7 Basophils % 0.3 0.6 Nucleated Red Blood Cells % 0.0 0.0 Neutrophils # 6.9 5.0 Lymphocytes # 1.4 1.6 Monocytes # 1.4 H 1.2 H Eosinophils # 0.1 0.1 Basophils # 0.0 0.1 Nucleated Red Blood Cells # 0.0 0.0 Sodium Level 138 142 Potassium Level 4.0 4.8 Chloride Level 104 105 Carbon Dioxide Level 26 28 Anion Gap 12 14 Blood Urea Nitrogen 18 21 H Creatinine 1.01 1.19 Glucose Level 135 110 Calcium Level 8.7 9.5 Total Bilirubin 0.3 0.5 Direct Bilirubin 0.00 0.00 Indirect Bilirubin 0.3 0.5 Aspartate Amino Transf (AST/SGOT) 22 24 Alanine Aminotransferase (ALT/SGPT) 36 41 Alkaline Phosphatase 96 97 Total Protein 6.4 6.9 Albumin 3.1 L 3.3 Globulin 3.30 H 3.60 H Albumin/Globulin Ratio 0.93 0.91 Hemoglobin A1c 6.2 H Phosphorus Level 4.9 Magnesium Level 2.0 Triglycerides Level 33 Cholesterol Level 69 L LDL Cholesterol, Calculated 39 HDL Cholesterol 23 L Cholesterol/HDL Ratio 3.0 Thyroid Stimulating Hormone (TSH) 0.527 Free Thyroxine Index 2.69 Thyroxine (T4) 6.3 Triiodothyronine (T3) Uptake 42.7 H Prothrombin Time 17.6 H Prothrombin Time Ratio 1.4 INR International Normalized Ratio 1.42 Activated Partial Thromboplast Time 37.8 H Medications Medications Current Medications Ondansetron HCl (Zofran Inj) 4 mg Q6H PRN IV NAUSEA AND/OR VOMITING; Start 07/13 at 14:30 Docusate Sodium (Colace) 100 mg Q12H PRN PO CONSTIPATION; Start 08/06/17 at 14 :30 Magnesium Hydroxide (Milk Of Mag) 30 ml DAILY PRN PO CONSTIPATION; Start 08/06 at 14:30 Bisacodyl (Dulcolax Supp) 10 mg DAILY PRN [place] CONSTIPATION; Start 08/06/17 at 14:30 Pantoprazole (Protonix Iv) 40 mg DAILY@06 IV Last administered on 08/07/17 05 :13; Admin Dose 40 MG; Start 08/07/17 at 06:00 Ketorolac Tromethamine (Toradol) 30 mg Q6 PRN IV pain Last administered on 13:12; Admin Dose 30 MG; Start 08/06/17 at 14:30; Stop 08/09/17 at 14: 29 Atorvastatin Calcium (Lipitor) 20 mg QHS PO Last administered on 08/06/17 21: 21; Admin Dose 20 MG; Start 08/06/17 at 21:00 Clopidogrel Bisulfate (plaVIX) 75 mg DAILY PO ; Start 08/07/17 at 09:00; Status Future Hold Digoxin (Digoxin) 0.0625 mg QHS PO Last administered on 08/06/17 21:22; Admin Dose 0.0625 MG; Start 08/06/17 at 21:00 Metoprolol Succinate (Toprol Xl) 12.5 mg DAILY PO Last administered on 08:34; Admin Dose 12.5 MG; Start 08/07/17 at 09:00 Rivaroxaban (Xarelto) 20 mg 18 PO ; Start 08/06/17 at 18:00; Status Future Hold Influenza Virus Vaccine (Fluzone) 0.5 ml ONCE ONCE IM* ; Start 08/08/17 at 09: 00; Stop 08/08/17 at 09:01 JAIR GONZALES NP Aug 07, 2017 14:13
--- NOTE | 2017-08-07 15:47 | PN ---
DATE: 08/07/2017 SUBJECTIVE: No acute changes. The patient is alert, looks comfortable, no fevers, at bedside. LABORATORY DATA: WBC 8, no shift, no bands. BUN 21, creatinine 1.19. PHYSICAL EXAMINATION: GENERAL: Well-developed elderly man who is alert, in no distress. HEENT: Head atraumatic, normocephalic. Sclerae anicteric. Buccal mucosa pink. NECK: Supple. CHEST: Rise symmetrical. Breath sounds clear. HEART: S1, S2. ABDOMEN: Soft. Bowel tones present. ASSESSMENT: 1. Right lateral mid-thigh fluid collection, possible hematoma versus seroma, questionable abscess. 2. Hypertension. 3. Anemia. 4. Atrial fibrillation. PLAN: The patient remains stable. He is off antibiotics, pending orthopedic evaluation for possibl e hematoma drainage. Dictated By: AVINASH COREY DIRECTOR TRANSLATION for JANETH RIVERA MD NI/NTS Conf#: [id number] DID#: [id number]
--- NOTE | 2017-08-07 16:06 | PDOCDIS ---
JAIR GONZALES NP Aug 07, 2017 16:06 Chronic hematoma of the right thigh. CONDITION Patient Condition: Fair HOME CARE INSTRUCTIONS: Diet Instructions: Low Fat /Cholesterol OTHER ORDERS: Other Orders: 1. Resume home medications. 2. Take [id number] pain medications. 3. Follow-up with outpatient orthopedic surgery at the earliest. 4. Low-cholesterol diet. JAIR GONZALES NP Aug 07, 2017 16:06
--- NOTE | 2017-08-07 17:22 | CONS ---
Date/Time of Note Date/Time of Note DATE: 08/07/17 TIME: 17:17 Assessment/Plan Assessment/Plan Additional Assessment/Plan Preoperative cardiac risk stratification Hematoma and plan for surgical intervention Atrial fibrillation CAD with history of PCI in the Hypertension -Patient with good exercise capacity, working out approximate 45 minutes 3-4 times a week without exertional chest pain or shortness of breath. ECG with no significant ischemic abnormalities. Patient has been off his Xarelto for the past 2 days. Patient had a low to intermediate risk for any untoward cardiac events for his orthopedic procedure. The benefits likely outweigh the risks. No further cardiac testing needed prior to planned procedure. Restart anticoagulation postprocedure when okay by our surgery colleagues. Consultation Date/Type/Reason Admit Date/Time Type of Consultation: cv Reason for Consultation Preoperative cardiac risk stratification Hx of Present Illness This is a 72-year-old male with past medical history of atrial fibrillation on anticoagulation, CAD with PCI in the who presented secondary to hematoma in his right lower extremity. Patient is planned to undergo surgical intervention for incision and drainage and possible wound VAC. Cardiology consultation was requested for preoperative risk stratification. In discussion with the patient, he is an active gentleman. He does workout approximately 3-4 times a week approximately 45 minutes of treadmill, bike riding at high intensity as well as weightlifting. With these activities, he denies chest pain or shortness of breath. He does take Xarelto for his atrial fibrillation and last dose was on 08/05/2017 12 point review of systems was performed with all pertinent positives and negatives mentioned above and all else is negative Past Medical History Atrial fibrillation Coronary artery disease Hypertension Past Surgical History Multiple orthopedic surgeries. Coronary ablation for atrial fibrillation Family History Significant Family History: no pertinent family hx Social History Alcohol Use: none Smoking Status: Former smoker Drug Use: none Exam/Review of Systems Vital Signs Vitals Vital Signs Date Time Temp Pulse Resp B/P Pulse Ox O2 Delivery O2 Flow Rate FiO2 08/07/17 08:10 98.7 20 117/75 98 08/07/17 02:17 61 08/06/17 16:16 Room Air Intake and Output 08/06/17 08/06/17 08/07/17 15:00 23:00 07:00 Intake Total 400 ml 500 ml Balance 400 ml 500 ml Exam No apparent distress Constitutional: alert, oriented, well developed Head: normocephalic Respiratory: clear to auscultation, normal air movement Cardiovascular: irregular rhythm, other (S1-S2 heard) Gastrointestinal: bowel sounds, non-tender, soft Extremities: other (Trace edema) Results Result Diagram: 08/07/173 08/07/173 Results 24 hrs Laboratory Tests Test 08/07/17 04:23 08/07/17 11:50 White Blood Count 8.0 Red Blood Count 4.18 L Hemoglobin 12.2 L Hematocrit 38.4 L Mean Corpuscular Volume 91.9 Mean Corpuscular Hemoglobin 29.2 Mean Corpuscular Hemoglobin Concent 31.8 L Red Cell Distribution Width 13.8 Platelet Count 247 Mean Platelet Volume 9.4 Neutrophils % 62.4 Lymphocytes % 20.0 Monocytes % 15.1 H Eosinophils % 1.7 Basophils % 0.6 Nucleated Red Blood Cells % 0.0 Neutrophils # 5.0 Lymphocytes # 1.6 Monocytes # 1.2 H Eosinophils # 0.1 Basophils # 0.1 Nucleated Red Blood Cells # 0.0 Sodium Level 142 Potassium Level 4.8 Chloride Level 105 Carbon Dioxide Level 28 Anion Gap 14 Blood Urea Nitrogen 21 H Creatinine 1.19 Glucose Level 110 Hemoglobin A1c 6.2 H Calcium Level 9.5 Phosphorus Level 4.9 Magnesium Level 2.0 Total Bilirubin 0.5 Direct Bilirubin 0.00 Indirect Bilirubin 0.5 Aspartate Amino Transf (AST/SGOT) 24 Alanine Aminotransferase (ALT/SGPT) 41 Alkaline Phosphatase 97 Total Protein 6.9 Albumin 3.3 Globulin 3.60 H Albumin/Globulin Ratio 0.91 Triglycerides Level 33 Cholesterol Level 69 L LDL Cholesterol, Calculated 39 HDL Cholesterol 23 L Cholesterol/HDL Ratio 3.0 Thyroid Stimulating Hormone (TSH) 0.527 Free Thyroxine Index 2.69 Thyroxine (T4) 6.3 Triiodothyronine (T3) Uptake 42.7 H Prothrombin Time 17.6 H Prothrombin Time Ratio 1.4 INR International Normalized Ratio 1.42 Activated Partial Thromboplast Time 37.8 H Medications Medications Current Medications Ondansetron HCl (Zofran Inj) 4 mg Q6H PRN IV NAUSEA AND/OR VOMITING; Start 07/13 at 14:30 Docusate Sodium (Colace) 100 mg Q12H PRN PO CONSTIPATION; Start 08/06/17 at 14 :30 Magnesium Hydroxide (Milk Of Mag) 30 ml DAILY PRN PO CONSTIPATION; Start 08/06 at 14:30 Bisacodyl (Dulcolax Supp) 10 mg DAILY PRN [place] CONSTIPATION; Start 08/06/17 at 14:30 Pantoprazole (Protonix Iv) 40 mg DAILY@06 IV Last administered on 08/07/17 05 :13; Admin Dose 40 MG; Start 08/07/17 at 06:00 Ketorolac Tromethamine (Toradol) 30 mg Q6 PRN IV pain Last administered on 13:12; Admin Dose 30 MG; Start 08/06/17 at 14:30; Stop 08/09/17 at 14: 29 Atorvastatin Calcium (Lipitor) 20 mg QHS PO Last administered on 08/06/17 21: 21; Admin Dose 20 MG; Start 08/06/17 at 21:00 Clopidogrel Bisulfate (plaVIX) 75 mg DAILY PO ; Start 08/07/17 at 09:00; Status Future Hold Digoxin (Digoxin) 0.0625 mg QHS PO Last administered on 08/06/17 21:22; Admin Dose 0.0625 MG; Start 08/06/17 at 21:00 Metoprolol Succinate (Toprol Xl) 12.5 mg DAILY PO Last administered on 08:34; Admin Dose 12.5 MG; Start 08/07/17 at 09:00 Rivaroxaban (Xarelto) 20 mg 18 PO ; Start 08/06/17 at 18:00; Status Future Hold Influenza Virus Vaccine (Fluzone) 0.5 ml ONCE ONCE IM* ; Start 08/08/17 at 09: 00; Stop 08/08/17 at 09:01 Procedures Procedures ECG demonstrates atrial fibrillation at 95 bpm, QRS 94 ms, nonspecific ST abnormalities Mik Flores DO Aug 07, 2017 17:22
--- NOTE | 2017-08-07 20:30 | CONS ---
DATE OF ADMISSION: 08/06/2017 DATE OF CONSULTATION: 08/07/2017 HISTORY: The patient is a 72-year-old male who was admitted on August 06, 2017, for further evaluation and care of the presence of a painful cystic mass over the posterior aspect of the right thigh. He was initially seen by me around May 05, 2017, because of the same cystic mass over the Dictation ends here. Dictated By: In Chuyita Barahona MD /mario/linsey /Document#: [id number]
[2017-08-07 20:36] VITALS: BP 149/90; RESP 18
--- NOTE | 2017-08-07 20:36 | CONS ---
DATE OF ADMISSION: 08/06/2017 DATE OF CONSULTATION: 08/07/2017 HISTORY OF PRESENT ILLNESS: The patient is a 72-year-old male who was admitted on August 06, 2017, because of a persistently painful cystic lump over the posterior aspect of the right thigh. He was initially seen by me in April 2017 because of the same problem which developed about a month prior to my initial evaluation, following a blunt blow to the posterior aspect of his right thigh. At that time, an aspiration was attempted but was not able to aspirate much and it was decided to wait for possible spontaneous resorption. However, it obviously did not absorb and he has been suffering from recurring pain involving the same area ever since. PHYSICAL EXAMINATION: The patient is a 72-year-old male who has a cystic fluid collection over the posterior aspect of the right thigh. Range of motion of the right knee or right hip was not provoking any exacerbation of the pain. DIAGNOSTIC DATA: CT scan obtained at the time of admission was showing an old fluid collection over the posterior aspect of the right thigh. The presence of tricompartmental osteoarthritis of the right knee was also noted. DIAGNOSTIC IMPRESSION: Collection of fluid, most probably hematoma or seroma, over the posterior aspect of the right thigh, rule out possible musculotendinous damages involving the hamstring muscles over the same area. TREATMENT PLAN: To surgery for open evacuation of the hematoma and repair as needed. Dictated By: In Chuyita Barahona MD /mario/linsey /Document#: [id number]
[2017-08-07] MEDS: ATORVASTATIN 20 MG TAB PO SCH (21:02)
[2017-08-07] MEDS: DIGOXIN 0.125 MG TAB PO SCH (21:03)
--- NOTE | 2017-08-07 21:49 | RADRPT ---
Vent Rate: 95 bpm RR Interval: 0 msec UT Interval: 0 msec QRS Duration: 94 msec QT Interval: 384 msec QTC Interval: 482 msec P-R-T [place]: 0 - -26 - 68 degrees Atrial fibrillation Nonspecific T wave abnormality , probably digitalis effect Prolonged QT Abnormal ECG Electronically Signed By: Jalen Resendiz [id number]
[2017-08-08] VITALS (20 sets, daily range): BP systolic 103–168; BP diastolic 75–97; PULSE 80–111; RESP 10–18
[2017-08-08 05:06] LABS: BASOPHILS % 0.4 % (0.0-2.0); EOSINOPHILS # 0.1 10^3/ul (0.0-0.5); EOSINOPHILS % 1.6 % (0.0-7.0); HEMATOCRIT 38.6 % (42.0-52.0); HEMOGLOBIN 12.1 g/dl (14.0-18.0); LYMPHOCYTES # 1.5 10^3/ul (0.8-2.9); LYMPHOCYTES % 18.3 % (15.0-51.0); MEAN CORPUSCULAR HEMOGLOBIN 28.5 pg (29.0-33.0); MEAN CORPUSCULAR HGB CONC 31.3 g/dl (32.0-37.0); MEAN PLATELET VOLUME 9.1 fl (7.4-10.4); MONOCYTE # 1.1 10^3/ul (0.3-0.9); MONOCYTES % 13.7 % (0.0-11.0); NEUTROPHIL # 5.5 10^3/ul (1.6-7.5); NEUTROPHILS % 65.6 % (39.0-77.0); PLATELET COUNT 244 10^3/UL (140-415); RED BLOOD COUNT 4.24 10^6/ul (4.70-6.10); RED CELL DISTRIBUTION WIDTH 13.9 % (11.5-14.5); WHITE BLOOD COUNT 8.3 10^3/ul (4.8-10.8)
[2017-08-08 05:28] LABS: CALCIUM 9.4 mg/dl (8.4-10.2); CREATININE 1.18 mg/dl (0.61-1.24); POTASSIUM 4.7 mmol/L (3.5-5.1)
[2017-08-08 05:30] LABS: MAGNESIUM 1.8 mg/dl (1.7-2.5); PHOSPHORUS 4.3 mg/dl (2.5-4.9)
[2017-08-08] MEDS: PANTOPRAZOLE 40 MG INJ IV SCH (05:30)
[2017-08-08] MEDS ORDERED: PROPOFOL 200 MG INJ ONE (07:00)
--- NOTE | 2017-08-08 07:05 | RADRPT ---
PROCEDURE: XR right femur. CLINICAL INDICATION: Pain TECHNIQUE: AP and lateral views of the right femur were performed. COMPARISON: CT EXTREMITY 08/06/2017 FINDINGS: There are postsurgical changes from right total hip arthroplasty with extended femoral component and cerclage wires. No acute fracture or dislocation is seen. There is severe tricompartmental joint space narrowing of the knee. The soft tissues are unremarkable. IMPRESSION: 1. Postsurgical changes from right hip arthroplasty with extended femoral component. 2. Severe right knee arthrosis. RPTAT: HH .Lian Eaton MD, MD Date Time Electronically viewed and signed by .Lian Eaton MD, MD on 08/08/2017 07:04 .G/
[2017-08-08] MEDS: METOPROLOL (XL) 25 MG TAB PO SCH (08:48)
[2017-08-08] MEDS ORDERED: INFLUENZA VIRUS VACCINE 0.5 ML (DISPENSING) IM* ONE (09:00)
--- NOTE | 2017-08-08 09:40 | PN ---
Date/Time of Note Date/Time of Note DATE: 08/08/17 TIME: 09:38 Assessment/Plan VTE Prophylaxis VTE Prophylaxis Intervention: contraindicated Lines/Catheters IV [facility]ter Type (from [facility]): Saline Lock Urinary Cath still in place: No Assessment/Plan Chief Complaint/Hosp Course 1. Fluid collection within the posterior lateral mid thigh posterior to the vastus lateralis muscle and hamstring musculature. -Possible hematoma versus seroma. Less likely abscess. -Orthopedic surgery has been consulted and is scheduled for evacuation of hematoma. -Hold factor Xa inhibitors. 2. Atrial fibrillation. -Continue digoxin. -Continue beta-blockers. -Cardiology following. 3. Essential hypertension. -Continue antihypertensives. 4. CAD. -S/P PCI in the past. -Plavix on hold for surgery. 5. Dyslipidemia. -Continue statins. 6. Anemia. -Normocytic and normochromic. -Monitor H&H closely. -Obtain iron panel. 7. Fluids, electrolytes, and nutrition. -Low-cholesterol diet. 8. DVT prophylaxis. -Contraindicated. 9. Plan. -Await orthopedic surgical intervention. -Continue pain control. Case discussed with Dr. Steel. Problems: Subjective 24 Hr Interval Summary Free Text/Dictation Continues to have right thigh pain. Exam/Review of Systems Vital Signs Vitals Vital Signs Date Time Temp Pulse Resp B/P Pulse Ox O2 Delivery O2 Flow Rate FiO2 08/08/17 08:25 98.1 87 18 124/86 94 08/06/17 16:16 Room Air Intake and Output 08/07/17 08/07/17 08/08/17 15:00 23:00 07:00 Intake Total 720 ml 700 ml Output Total 800 ml 650 ml Balance -80 ml 50 ml Exam General: Adequately build 72 year-old male lying in bed in no apparent distress. HEENT: Normocephalic, atraumatic. Eyes: Anicteric sclerae, conjunctivae clear. ENT: Nasal septum midline, oral mucosa moist. Neck supple, no JVD noticed. Respiratory: Bilaterally clear breath sounds. No use of accessory muscles of respiration. No adventitious breath sounds. Cardiovascular: S1, S2 heard. Irregularly irregular rhythm. Abdomen: Soft, nontender, and nondistended. Bowel sounds positive in all 4 quadrants. Genitourinary: Deferred. Extremities: No cyanosis, no clubbing, no edema. Peripheral pulses palpable. Right posterior thigh palpable soft area that is tender to touch. Neurologic: Cranial nerves II through XII grossly intact. The patient is awake, alert, and oriented. Skin: Normal skin turgor. No skin rashes. Results Result Diagram: 08/08/17 0433 08/08/17 0433 Results 24 hrs Laboratory Tests Test 08/07/17 11:50 08/08/17 04:33 Prothrombin Time 17.6 H Prothrombin Time Ratio 1.4 INR International Normalized Ratio 1.42 Activated Partial Thromboplast Time 37.8 H White Blood Count 8.3 Red Blood Count 4.24 L Hemoglobin 12.1 L Hematocrit 38.6 L Mean Corpuscular Volume 91.0 Mean Corpuscular Hemoglobin 28.5 L Mean Corpuscular Hemoglobin Concent 31.3 L Red Cell Distribution Width 13.9 Platelet Count 244 Mean Platelet Volume 9.1 Neutrophils % 65.6 Lymphocytes % 18.3 Monocytes % 13.7 H Eosinophils % 1.6 Basophils % 0.4 Nucleated Red Blood Cells % 0.0 Neutrophils # 5.5 Lymphocytes # 1.5 Monocytes # 1.1 H Eosinophils # 0.1 Basophils # 0.0 Nucleated Red Blood Cells # 0.0 Sodium Level 143 Potassium Level 4.7 Chloride Level 107 Carbon Dioxide Level 26 Anion Gap 15 Blood Urea Nitrogen 22 H Creatinine 1.18 Glucose Level 107 Calcium Level 9.4 Phosphorus Level 4.3 Magnesium Level 1.8 Medications Medications Current Medications Ondansetron HCl (Zofran Inj) 4 mg Q6H PRN IV NAUSEA AND/OR VOMITING; Start 07/13 at 14:30 Docusate Sodium (Colace) 100 mg Q12H PRN PO CONSTIPATION; Start 08/06/17 at 14 :30 Magnesium Hydroxide (Milk Of Mag) 30 ml DAILY PRN PO CONSTIPATION; Start 08/06 at 14:30 Bisacodyl (Dulcolax Supp) 10 mg DAILY PRN [place] CONSTIPATION; Start 08/06/17 at 14:30 Pantoprazole (Protonix Iv) 40 mg DAILY@06 IV Last administered on 08/08/17 05 :30; Admin Dose 40 MG; Start 08/07/17 at 06:00 Ketorolac Tromethamine (Toradol) 30 mg Q6 PRN IV pain Last administered on 13:12; Admin Dose 30 MG; Start 08/06/17 at 14:30; Stop 08/09/17 at 14: 29 Atorvastatin Calcium (Lipitor) 20 mg QHS PO Last administered on 08/07/17 21: 02; Admin Dose 20 MG; Start 08/06/17 at 21:00 Digoxin (Digoxin) 0.0625 mg QHS PO Last administered on 08/07/17 21:03; Admin Dose 0.0625 MG; Start 08/06/17 at 21:00 Metoprolol Succinate (Toprol Xl) 12.5 mg DAILY PO Last administered on 08:34; Admin Dose 12.5 MG; Start 08/07/17 at 09:00 JAIR GONZALES NP Aug 08, 2017 09:40
[2017-08-08] MEDS ORDERED: LABETALOL HCL 20MG INJ IV PRN ×2 (11:00→16:30)
[2017-08-08 11:01] LABS: IRON 19 ug/dl (35-150)
[2017-08-08 11:11] LABS: TOTAL IRON BINDING CAPACITY 291 ug/dl (241-421)
--- NOTE | 2017-08-08 13:28 | RADRPT ---
Echocardiogram Report Patient Name: HALINA QUINTANA Gender: Male Date: 1945 Study Date: 08-Aug-2017 Band [facility]: [facility] Location: [facility] Ref. Physician: MIK FLORES Quality: Good Procedures: Transthoracic echocardiogram with complete 2D, M-Mode, and doppler examination. Indications: Atrial Fibrillation. 2D/M Mode Doppler Measurement Value Normal Ranges Measurement Value Normal Ranges LVIDd 2D 5.6 3.5 - 5.6 cm AV Peak Wan 1.3 m/sec LVIDs 2D 4.9 2.1 - 4.1 cm AV Peak PG 7.2 mmHg LVPWd 2D 1.0 0.6 - 1.1 cm AI Peak PG 80.6 mmHg IVSd 2D 0.9 0.6 - 1.1 cm AI Peak Wan 4.5 m/sec AoR Diam 2D 3.4 2.0 - 3.7 cm AI PHT 597.6 msec EDV 2D 156.1 cm3 LVOT Peak Wan 0.6 m/sec ESV 2D 114.2 cm3 LVOT Peak PG 1.2 mmHg LA Dimen 2D 4.4 2.3 - 4.0 cm MV E Peak Wan 1.0 m/sec MV A Peak Wan 0.1 m/sec MV E/A 6.9 MV Decel Time 197 msec MV Decel Kay 5 MV E/A 6.9 TR Peak Wan 3.2 m/sec TR Peak PG 40.9 mmHg RVSP 56.0 mmHg Findings Left Ventricle: Normal left ventricular cavity size. Normal left ventricular wall thickness. Moderate to severe left ventricular systolic dysfunction. Ejection fraction is visually estimated at 35 %. Abnormal Diastolic Function. Right Ventricle: Normal right ventricular size. Normal right ventricular systolic function. Left Atrium: There is mild enlargement of left atrium. Right Atrium: There is mild enlargement of right atrium. Mitral Valve: Mitral valve leaflets appear mildly thickened. Mild mitral annular calcification. Moderate mitral valve regurgitation. Aortic Valve: No hemodynamically significant aortic stenosis by doppler. Aortic cusps appear mildly calcified. Mild aortic valve regurgitation. Tricuspid Valve: Normal appearance of the tricuspid valve. Estimated peak PA systolic pressure 56 mmHg. There is mild to moderate tricuspid regurgitation. Pulmonic Valve: Normal pulmonic valve appearance. Pericardium: Normal pericardium with no significant pericardial effusion. Aorta: Normal aortic root. IVC: Dilated IVC without respiratory collapse consistent with elevated right atrial pressure. Conclusions 1.Normal left ventricular cavity size. Normal left ventricular wall thickness. Moderate to severe left ventricular systolic dysfunction. Ejection fraction is visually estimated at 35 %. Abnormal Diastolic Function. 2.Normal right ventricular size. Normal right ventricular systolic function. 3.There is mild enlargement of left atrium. 4.There is mild enlargement of right atrium. 5.Moderate mitral valve regurgitation. 6.No hemodynamically significant aortic stenosis by doppler. Mild aortic valve regurgitation. 7.Estimated peak PA systolic pressure 56 mmHg. There is mild to moderate tricuspid regurgitation. 8.Normal pericardium with no significant pericardial effusion. Electronically Signed By: Mik Flores 08-Aug-2017 13:27:31 -0800 Patient Name: HALINA QUINTANA Study Date: 08-Aug-[id number]
[2017-08-08] MEDS ORDERED: MAGNESIUM SULFATE 2 GM/50 ML 50 ML IVPB ONE (14:00)
--- NOTE | 2017-08-08 14:28 | HPN ---
Date/Time of Note Date/Time of Note DATE: 08/08/17 TIME: 14:27 Interval H&P Admission Note Pt. seen H&P reviewed: No system changes RICHY ABEBE MD Aug 08, 2017 14:28
[2017-08-08] MEDS ORDERED: ETOMIDATE 20 MG INJ ONE (14:30)
[2017-08-08] MEDS ORDERED: ROCURONIUM 50 MG INJ ONE (14:31)
[2017-08-08] MEDS ORDERED: LIDOCAINE 2% (SDV) 5 ML INJ ONE (14:31)
[2017-08-08] MEDS ORDERED: SUCCINYLCHOLINE CHLORIDE 100 MG/5 ML SYG IV ONE (14:31)
[2017-08-08] MEDS ORDERED: FENTAnyl 50 MCG/ML VIAL ONE (14:35)
[2017-08-08] MEDS ORDERED: ESMOLOL 10 ML ONE (14:37)
[2017-08-08] MEDS ORDERED: PHENYLephrine (100 MCG/ML) 5ML SYG ONE (14:43)
[2017-08-08] MEDS ORDERED: METOPROLOL 5 MG INJ ONE ×2 (14:55→15:33)
[2017-08-08] MEDS ORDERED: CEFAZOLIN 1 GM INJ ONE (14:58)
[2017-08-08] MEDS ORDERED: DEXAMETHASONE 4 MG/ML 1 ML INJ ONE (15:00)
[2017-08-08] MEDS ORDERED: FAMOTIDINE 20 MG INJ ONE (15:00)
[2017-08-08] MEDS ORDERED: ONDANSETRON 4 MG INJ ONE (15:00)
[2017-08-08] MEDS ORDERED: BUPIVACAINE 0.25% (MPF) 30 ML INJ ONE (15:09)
[2017-08-08] MEDS ORDERED: SUGAMMADEX SODIUM 200 MG/2 ML VIAL IV ONE (15:38)
[2017-08-08] MEDS ORDERED: NACL 0.9% 3 ML SYG IV SCH (16:00)
[2017-08-08] MEDS ORDERED: HYDROCODONE/APAP (10/325) TAB PO PRN (16:00)
[2017-08-08] MEDS ORDERED: HYDROmorphONE 1 MG/ML SYG IV PRN (16:00)
--- NOTE | 2017-08-08 16:23 | SIPON ---
Date/Time of Note Date/Time of Note DATE: 08/08/17 TIME: 16:17 Operative Report Preoperative Diagnosis hematoma vs abcess Lt. thigh Postoperative Diagnosis see path report Operation/Procedure Performed open excision of soft mass from Lt. thigh Surgeon see signature line fast food sales assistant none Anesthesia: general Estimated blood loss: 0 - 10 ml's Transfusion Required none Specimen removed tissue Grafts/Implants none Complications none RICHY ABEBE MD Aug 08, 2017 16:23
[2017-08-08] MEDS: SOD CHLORIDE 0.9% 1,000 ML IV SCH (16:25)
[2017-08-08] MEDS ORDERED: ONDANSETRON 4 MG INJ IV PRN (16:30)
[2017-08-08] MEDS ORDERED: FENTAnyl 50 MCG/ML VIAL IV PRN (16:30)
[2017-08-08] MEDS: KETOROLAC 30 MG INJ IV PRN (20:00)
[2017-08-08] MEDS: DIGOXIN 0.125 MG TAB PO SCH (20:03)
[2017-08-08] MEDS: ATORVASTATIN 20 MG TAB PO SCH (20:04)
--- NOTE | 2017-08-08 20:32 | CONS ---
Date/Time of Note Date/Time of Note DATE: 08/08/17 TIME: 20:31 Assessment/Plan Assessment/Plan Chief Complaint/Hosp Course SUBJECTIVE: No acute changes. The patient is alert, looks comfortable, no fevers PHYSICAL EXAMINATION: GENERAL: Well-developed elderly man who is alert, in no distress. HEENT: Head atraumatic, normocephalic. Sclerae anicteric. Buccal mucosa pink. NECK: Supple. CHEST: Rise symmetrical. Breath sounds clear. HEART: S1, S2. ABDOMEN: Soft. Bowel tones present. ASSESSMENT: 1. Right thigh fluid collection, possible hematoma versus seroma, questionable abscess. 2. Hypertension. 3. Anemia. 4. Atrial fibrillation. PLAN: The patient remains stable. Ortho follows, pending surgery DW pt/staff Problems: Consultation Date/Type/Reason Admit Date/Time Aug 06, 2017 at 14:23 Initial Consult Date Type of Consultation: ID Exam/Review of Systems Vital Signs Vitals Vital Signs Date Time Temp Pulse Resp B/P Pulse Ox O2 Delivery O2 Flow Rate FiO2 08/08/17 19:51 98.6 91 18 138/92 99 08/08/17 16:53 Room Air 08/08/17 16:43 3.0 Intake and Output 08/07/17 08/07/17 08/08/17 15:00 23:00 07:00 Intake Total 720 ml 700 ml Output Total 800 ml 650 ml Balance -80 ml 50 ml Results Result Diagram: 08/08/17 0433 08/08/17 0433 Results 24 hrs Laboratory Tests Test 08/08/17 04:30 08/08/17 04:33 Iron Level 19 L Total Iron Binding Capacity 291 Percent Iron Saturation 7 L Ferritin 115.0 White Blood Count 8.3 Red Blood Count 4.24 L Hemoglobin 12.1 L Hematocrit 38.6 L Mean Corpuscular Volume 91.0 Mean Corpuscular Hemoglobin 28.5 L Mean Corpuscular Hemoglobin Concent 31.3 L Red Cell Distribution Width 13.9 Platelet Count 244 Mean Platelet Volume 9.1 Neutrophils % 65.6 Lymphocytes % 18.3 Monocytes % 13.7 H Eosinophils % 1.6 Basophils % 0.4 Nucleated Red Blood Cells % 0.0 Neutrophils # 5.5 Lymphocytes # 1.5 Monocytes # 1.1 H Eosinophils # 0.1 Basophils # 0.0 Nucleated Red Blood Cells # 0.0 Sodium Level 143 Potassium Level 4.7 Chloride Level 107 Carbon Dioxide Level 26 Anion Gap 15 Blood Urea Nitrogen 22 H Creatinine 1.18 Glucose Level 107 Calcium Level 9.4 Phosphorus Level 4.3 Magnesium Level 1.8 Medications Medications Current Medications Ondansetron HCl (Zofran Inj) 4 mg Q6H PRN IV NAUSEA AND/OR VOMITING; Start 07/13 at 14:30 Docusate Sodium (Colace) 100 mg Q12H PRN PO CONSTIPATION; Start 08/06/17 at 14 :30 Magnesium Hydroxide (Milk Of Mag) 30 ml DAILY PRN PO CONSTIPATION; Start 08/06 at 14:30 Bisacodyl (Dulcolax Supp) 10 mg DAILY PRN [place] CONSTIPATION; Start 08/06/17 at 14:30 Pantoprazole (Protonix Iv) 40 mg DAILY@06 IV Last administered on 08/08/17 05 :30; Admin Dose 40 MG; Start 08/07/17 at 06:00 Ketorolac Tromethamine (Toradol) 30 mg Q6 PRN IV pain Last administered on 20:00; Admin Dose 30 MG; Start 08/06/17 at 14:30; Stop 08/09/17 at 14: 29 Atorvastatin Calcium (Lipitor) 20 mg QHS PO Last administered on 08/08/17 20: 04; Admin Dose 20 MG; Start 08/06/17 at 21:00 Digoxin (Digoxin) 0.0625 mg QHS PO Last administered on 08/08/17 20:03; Admin Dose 0.0625 MG; Start 08/06/17 at 21:00 Metoprolol Succinate 12.5 mg 12.5 mg DAILY PO Last administered on 08/07/17 08:34; Admin Dose 12.5 MG; Start 08/07/17 at 09:00 Cefazolin Sodium 50 ml @ 100 mls/hr Q8 IVPB ; Start 08/08/17 at 22:00; Stop 08/09/17 at 14:29 Sodium Chloride (NS) 1,000 ml @ 100 mls/hr Q10H IV ; Start 08/08/17 at 16:25 Hydromorphone HCl (Dilaudid) 1 mg Q3H PRN IV pain; Start 08/08/17 at 16:00 Acetaminophen/ Hydrocodone Bitart ([place] (10/325)) 1 tab Q4H PRN PO PAIN; Start 08/08/17 at 16:00 AVINASH COREY NP Aug 08, 2017 20:32
[2017-08-08] MEDS: CEFAZOLIN 1 GM/50 ML (PMX) 50 ML IVPB SCH (21:45)
[2017-08-09] MEDS: SOD CHLORIDE 0.9% 1,000 ML IV SCH (02:35)
[2017-08-09 05:53] LABS: HEMATOCRIT 38.4 % (42.0-52.0); HEMOGLOBIN 12.5 g/dl (14.0-18.0); LYMPHOCYTES # 0.8 10^3/ul (0.8-2.9); LYMPHOCYTES % 10.4 % (15.0-51.0); MEAN CORPUSCULAR HGB CONC 32.6 g/dl (32.0-37.0); MEAN CORPUSCULAR VOLUME 89.1 fl (82.0-101.0); MEAN PLATELET VOLUME 9.5 fl (7.4-10.4); MONOCYTE # 0.4 10^3/ul (0.3-0.9); MONOCYTES % 4.6 % (0.0-11.0); NEUTROPHIL # 6.7 10^3/ul (1.6-7.5); NEUTROPHILS % 84.5 % (39.0-77.0); PLATELET COUNT 226 10^3/UL (140-415); RED BLOOD COUNT 4.31 10^6/ul (4.70-6.10); RED CELL DISTRIBUTION WIDTH 13.7 % (11.5-14.5)
[2017-08-09] MEDS: CEFAZOLIN 1 GM/50 ML (PMX) 50 ML IVPB SCH (06:03)
[2017-08-09] MEDS: PANTOPRAZOLE 40 MG INJ IV SCH (06:03)
[2017-08-09 06:23] LABS: CALCIUM 9.3 mg/dl (8.4-10.2); CREATININE 1.03 mg/dl (0.61-1.24); POTASSIUM 4.9 mmol/L (3.5-5.1)
[2017-08-09 07:58] VITALS: BP 142/82; RESP 18
[2017-08-09] MEDS: METOPROLOL (XL) 25 MG TAB PO SCH (08:35)
[2017-08-09] MEDS ORDERED: FER325 PO (11:47)
--- NOTE | 2017-08-09 11:47 | PDOCDIS ---
Discharge Instructions DIAGNOSIS Discharge Diagnosis Right thigh fluid collection. CONDITION Patient Condition: Stable HOME CARE INSTRUCTIONS: Diet Instructions: Reduced SodiumSpecial Diet: low fat low chol ACTIVITY: Activity Restrictions: No Restrictions FOLLOW UP/APPOINTMENTS Follow-up Plan Kevin Barahona MD Specialty Orth[facility] Surgery Office Address [address] [place] [id number] Office OTHER ORDERS: Other Orders: 1. Resume home medications. 2. Activities as tolerated. 3. Follow-up with Dr. Barahona's office in 1 week. 4. Take a low-cholesterol diet. JAIR GONZALES NP Aug 09, 2017 11:47
[2017-08-09] MEDS ORDERED: SOD FERRIC GLUC COMPLX 125 MG in SOD CHLORIDE 0.9% 100 ML IVPB SCH (12:00)
--- NOTE | 2017-08-09 13:44 | DS ---
Date/Time of Note Date/Time of Note DATE: 08/09/17 TIME: 13:43 Discharge Summary Admission/Discharge Info Admit Date/Time Aug 06, 2017 at 14:23 Discharge Date/Time Aug 09, 2017 at 13:13 Discharge Diagnosis 1. Soft tissue mass in the right upper thigh. S/P open drainage (pending pathology). 2. Atrial fibrillation. 3. Essential hypertension. 4. CAD. S/P PCI in the past. 5. Cardiomyopathy. Ejection fraction of 35%. 6. Dyslipidemia. 7. Iron deficiency anemia. 8. Pulmonary hypertension. PA pressure of 56 mm Hg per 2D echo. Patient Condition: Stable Consults 1. Mik Flores DO, Cardiology. 2. Lashonda Barahona MD, Orthopedic Surgery. 3. Aj Dougherty MD, Infectious Diseases. Procedures Preoperative Diagnosis Hematoma vs abscess Rt. thigh Postoperative Diagnosis see path report Operation/Procedure Performed Open excision of soft mass from Rt. thigh. LLE CT IMPRESSION: 1. Persistent fluid collection within the posterior lateral mid thigh posterior to the vastus lateralis muscle and hamstring musculature measuring up to 8.1 x 2.7 x 9.0 cm which may correspond with a chronic hematoma or seroma, less likely abscess. 2. Intact right total hip prosthesis without an acute fracture. 3. 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 2D Echocardiogram Conclusions 1. Normal left ventricular cavity size. Normal left ventricular wall thickness. Moderate to severe left ventricular systolic dysfunction. Ejection fraction is visually estimated at 35 %. Abnormal Diastolic Function. 2. Normal right ventricular size. Normal right ventricular systolic function. 3. There is mild enlargement of left atrium. 4. There is mild enlargement of right atrium. 5. Moderate mitral valve regurgitation. 6. No hemodynamically significant aortic stenosis by doppler. Mild aortic valve regurgitation. 7. Estimated peak PA systolic pressure 56 mmHg. There is mild to moderate tricuspid regurgitation. 8. Normal pericardium with no significant pericardial effusion. Hx of Present Illness This is a 72-year-old male patient with past medical history of atrial fibrillation, essential hypertension, CAD, and dyslipidemia who came to the emergency room with chief complaint of right leg pain secondary to a fluid collection on the posterior aspect of the right thigh. The patient was admitted to [facility] in April 2017 with the same problem when he was discharged home to be followed up with outpatient orthopedic surgery. The patient underwent an MRI of the right lower extremity in April 2017 that showed peripherally enhancing lobulated fluid collection measuring 94.33.5 cm. The patient continued to have right thigh area pain that brought him to the emergency room on 08/06/2017. The patient underwent a right lower extremity CT scan that showed "persistent fluid collection within the posterior lateral mid thigh posterior to the vastus lateralis muscle and hamstring musculature measuring up to 8.1 x 2.7 x 9.0 cm which may correspond with a chronic hematoma or seroma, less likely abscess." Provided the patient' s history of present illness and the diagnostic findings, a clinical decision was made to admit the patient to inpatient setting to have him further evaluated. Hospital Course The initial plan was for interventional radiology guided drainage of the fluid collection. However, after talking with radiology, the patient is not an ideal candidate for IR guided drainage. Therefore, orthopedic surgery consult was obtained. The patient's factor Xa inhibitors were put on hold because of possible underlying hematoma. Orthopedic surgery evaluated the patient and the patient underwent an open excision of the fluid collections/soft mass from the right thigh. As per the conversation with the orthopedic surgeon, this masslike lesion looked like a yellow fatty stuff of unusual consistency. Therefore, the specimen was sent to the pathology for histopathologic evaluation. The results of this are pending at this time. Postprocedure, the patient had a Hemovac placed. The plan was to take the Hemovac off on 2016. However, the patient accidentally removed the right thigh area Hemovac on 08/09/2017. The patient had no evidence of any significant bleeding from the incision site. After discussing with the orthopedic surgeon, the patient was cleared to be discharged home on 08/09/2017. The patient's factor Xa inhibitors and Plavix will be resumed upon discharge. The patient has underlying atrial fibrillation. The patient's rate was controlled during the hospital course. The patient was maintained on digoxin and beta blockers. The patient was evaluated by cardiology during this visit. The patient is apparently scheduled for a cardiac ablation next week. The patient's factor Xa inhibitors were on hold perioperatively. The patient has underlying essential hypertension and he was maintained on antihypertensives for the same. The patient has a history of CAD and he is status post percutaneous coronary intervention in the past. Consequently, the patient was on Plavix. The patient's Plavix was put on hold prior to the surgery. The patient has underlying dyslipidemia. He was maintained on statins. The patient also had evidence of cardiomyopathy with an ejection fraction of 35% on 2D echocardiogram. The patient had no evidence of any congestive heart failure exacerbation during this hospitalization. The patient was noticed have normocytic and normochromic anemia. The patient had evidence of iron deficiency. Consequently, the patient will be discharged home on iron supplements. The patient was noticed to have moderate pulmonary hypertension with a PA pressure 56 mmHg as per 2D echocardiogram. The 2D echocardiogram also revealed mild to moderate tricuspid regurgitation, the probable cause for his underlying pulmonary hypertension. The patient had a stable hospital course. The patient was cleared by consultants to be discharged home. Discharge Instructions 1. Resume home medications. 2. Activities as tolerated. 3. Follow-up with Dr. Barahona's office in 1 week. 4. Take a low-cholesterol diet. The patient verbalized understanding of his discharge instructions. At this time I would like to thank all the consultants for seeing the patient, doing the necessary procedures, and providing clinical recommendations. Case discussed with Dr. Steel. Home Meds Active Scripts Ferrous Sulfate* (Ferrous Sulfate*) 325 Mg Tabec, 325 MG PO BID, #60 TAB Prov:JAIR GONZALES NP 08/09/17 Naproxen* (Naproxen EC*) 500 Mg Tablet.dr 500 MG PO BID Y for PAIN for 30 Days , #60 TAB Prov:AILEEN STEEL MD 05/05/17 Reported Medications Atorvastatin Calcium* (Atorvastatin Calcium*) 20 Mg Tablet, 20 MG PO QHS, #30 TAB 05/04/17 Metoprolol Succinate* (Toprol XL*) 25 Mg Tab.sr.24h, 12.5 MG PO DAILY, #30 TAB 05/04/17 Rivaroxaban* (Xarelto*) 20 Mg Tablet, 20 MG PO QAM, TAB 05/04/17 Clopidogrel Bisulfate (Clopidogrel) 75 Mg Tablet, 75 MG PO DAILY, #30 TAB 05/04/17 Digoxin* (Digitek*) 125 Mcg Tablet, 0.62 MG PO QHS, TAB 05/04/17 Follow-up Plan Kevin Barahona MD [facility] Office Address [address] [place], [place] [id number] Office Primary Care Provider Aj Dougherty MD Time spent on discharge: 40 mins Pending Labs Laboratory Tests Test 08/09/17 05:19 White Blood Count 8.010^3/ul (4.8-10.8) Red Blood Count 4.3110^6/ul (4.70-6.10) Hemoglobin 12.5g/dl (14.0-18.0) Hematocrit 38.4% (42.0-52.0) Mean Corpuscular Volume 89.1fl (82.0-101.0) Mean Corpuscular Hemoglobin 29.0pg (29.0-33.0) Mean Corpuscular Hemoglobin Concent 32.6g/dl (32.0-37.0) Red Cell Distribution Width 13.7% (11.5-14.5) Platelet Count 88333^3/UL (140-415) Mean Platelet Volume 9.5fl (7.4-10.4) Neutrophils % 84.5% (39.0-77.0) Lymphocytes % 10.4% (15.0-51.0) Monocytes % 4.6% (0.0-11.0) Eosinophils % 0.0% (0.0-7.0) Basophils % 0.0% (0.0-2.0) Nucleated Red Blood Cells % 0.0/100WBC (0.0-0.0) Neutrophils # 6.710^3/ul (1.6-7.5) Lymphocytes # 0.810^3/ul (0.8-2.9) Monocytes # 0.410^3/ul (0.3-0.9) Eosinophils # 0.010^3/ul (0.0-0.5) Basophils # 0.010^3/ul (0.0-0.1) Nucleated Red Blood Cells # 0.010^3/ul (0.0-0.0) Sodium Level 141mmol/L (135-144) Potassium Level 4.9mmol/L (3.5-5.1) Chloride Level 104mmol/L (97-110) Carbon Dioxide Level 25mmol/L (21-31) Anion Gap 17 (8-16) Blood Urea Nitrogen 22mg/dl (7-20) Creatinine 1.03mg/dl (0.61-1.24) Glucose Level 157mg/dl (70-220) Calcium Level 9.3mg/dl (8.4-10.2) Magnesium Level 1.7mg/dl (1.7-2.5) Microbiology Date/Time Source Procedure Growth Status 08/08/17 15:34 Right Thigh Gram Stain Pending Resulted 08/08/17 15:34 Right Thigh Surgical Biopsy Culture - Preliminary Resulted 08/08/17 15:34 Right Thigh Gram Stain Pending Resulted 08/08/17 15:34 Right Thigh Wound Culture - Preliminary Resulted JAIR GONZALES NP Aug 09, 2017 13:43
--- NOTE | 2017-08-10 09:29 | OPR ---
DATE OF OPERATION: 08/08/2017 PREOPERATIVE DIAGNOSIS: Painful cystic soft tissue structures over the back of the thigh, possible liquefied hematoma or possible abscess. POSTOPERATIVE DIAGNOSIS: Soft gelatinous mass over the back of the thigh, see pathology report for further diagnosis. PROCEDURE PERFORMED: Exploration of the cystic mass over the thigh and excision of the gelatinous soft tissue mass. ANESTHESIA: General anesthesia. SURGEON: Kevin Barahona MD PROCEDURE AND FINDINGS: The patient was placed in prone position. A tourniquet was placed over the proximal portion of the thigh and was inflated up to 300 mmHg prior to the procedure. The usual prep and drape was done exposing the thigh. The cystic soft tissue mass was approached through an about 1 to 1 1/2 inch incision over the posterior aspect of the upper portion of the right thigh. On opening, a yellowish soft tissue mass was noted, grossly it looked like pus, however further evaluation revealed that it was not pus or hematoma and this tissue was very the soft and fluid and was filling the cystic cavity in the posterior aspect of the right thigh. A thorough excision of fluid, soft tissue mass was carried out and specimen was taken for Gram stain and culture and sensitivity and also for pathologic tissue examination. Using curette and rongeurs, this tissue was thoroughly removed. After the removal, the area was repeatedly irrigated with hydrogen peroxide and sterile saline solution and antibiotic solutions. At the end of the procedure, a medium-size Hemovac was left in the area and the incision was closed air tight. Proper dressings were applied. The patient tolerated the entire procedure very well and was sent to the recovery room in good condition. Dictated By: In Chuyita Barahona MD /mario/linsey /Document#: [id number]
== END 2017-08-09 13:13 | disposition home or self-care (01) ==
LOC: E/R 10:16 → MS1 14:23 → INTOOBSV 14:23
PROVIDERS: ADMIT Family Medicine; ATTEND Family Medicine
DX: L02.415 Cutaneous abscess of right lower limb (principal); I48.91 Unspecified atrial fibrillation; I10 Essential (primary) hypertension; I25.10 Atherosclerotic heart disease of native coronary artery without angina pectoris; Z98.61 Coronary angioplasty status; E78.5 Hyperlipidemia, unspecified; I42.9 Cardiomyopathy, unspecified; D50.9 Iron deficiency anemia, unspecified; Z96.643 Presence of artificial hip joint, bilateral; Z86.73 Personal history of transient ischemic attack (TIA), and cerebral infarction without residual deficits; Z88.6 Allergy status to analgesic agent; Z23 Encounter for immunization
CPT/HCPCS: 10060; 73550; 73700; 80048; 80053; 80061; 82728; 83036; 83540; 83735; 84100; 84436; 84443; 84479; 85025; 85610; 85730; 87070; 88305; 90686; 93005; 93306; 96374; 99285; C9113; G0378; J0690; J1100; J1885; J2405; J2916; J3010; J3475; J7030; Q9967; 99217; J2370

== ENCOUNTER → 2017-10-04 | Outpatient (CLI) | END | disposition home or self-care (01) ==